=== PATIENT | female | born 1950 | race Caucasian/White ===

== ENCOUNTER 2016-07-10 00:06 | Inpatient (IN) | payer MEDICARE, MEDICAID ==
[~2016-07-10] VITALS: Ht 160 cm; Wt 119.7 kg
[~2016-07-10 00:06] MED LIST: ALPR0.5T22 PO; ALPR0.5T7 PO; BENA20TA2 PO; BENA20TA72 PO; BUDE10.22 IH; CEFD300C3 PO; CEFT2FRO2 IV; CEPH500C PO; CYCL10TA9 PO; DOCU100T2 PO; DOXY100T2 PO; EZET1TAB16 PO; EZET1TAB26 PO; FENO145T2 PO; FENT1PAT11 TD; FENT1PAT11 TP; FENT1PAT3 TD; FENT1PAT59 TD; FURO40TA PO; FURO40TA4 PO; GLIP5TAB13 PO; HYDR25TA4 PO; INSR1U SC; INSU100C SQ; INSU100I14 SC; INSU100V3 SQ; INSU100V6 SC; INSU100V6 SQ; IPRA3AMP11 INH; LACT1CAP45 PO; LORA10TA76 PO; MAG355OR16 PO; METO10TA61 PO; METO5TAB2 PO; METO5TAB79 PO; MG T1TAB PO; MONT10TA21 PO; MONT10TA24 PO; NF-OLOP5ML OU; NITR0.4T3 SL; OLOP5DRO7 OU; OMEG10005 PO; OMEP40CA36 PO; ONDA-43 PO; ONDA4TAB11 PO; ONDA4TAB8 PO; ONDA8TAB13 PO; ONDA8TAB6 PO; OXYC-471 PO; OXYC1TAB25 PO; OXYC5TAB71 PO; RT-ALBUINH IH; VANC1VIA IV; ZOLP10TA5 PO; ZOLP5TAB6 PO; [UNRECOGNIZED DRUG - CODE] TP
--- OUTSIDE RECORDS SUMMARY | 2016-07-10 00:12 | XMS REPORT | Continuity of Care Document ---
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 [address] Reason(s) for Referral: 13:00 Additional Instructions/Education REG DIET Functional Status Query Response Date Recorded Comprehension Ability Understands Concepts October 25, 2014 9:00am Allergies, Adverse Reactions, Alerts Allergen Type Severity Reaction Status Last Updated Iodinated Contrast Media - IV Dye Allergy Unknown SOB Active 07/30/14 Penicillins ([id number]) Allergy Unknown NAUSEA Active 07/30/14 Morphine Allergy Unknown NAUSEA Active 07/30/14 Codeine Allergy Unknown HIVES, VOMITING Active 07/30/14 Cephalexin Allergy Unknown ABDOMINAL PAIN Active 07/30/14 Erythromycin base Allergy Unknown NAUSEA Active 07/30/14 Clindamycin Allergy Severe VOMITING/RASH Active 10/22/14 sulfamethoxazole ([id number]) Allergy Unknown ITCHINESS Active 07/30/14 nitrofurantoin ([id number]) Allergy Unknown VOMITING Active 07/30/14 Trimethoprim Allergy Unknown ITCHINESS Active 07/30/14 ciprofloxacin ([id number]) Allergy Unknown VOMITING Active 07/30/14 adhesive ([id number]) Allergy Unknown HIVES Active 07/30/14 Clarithromycin Allergy [...] F (97.6 - 99.5) Temperature (Calculated Celsius) 37.50766 degrees C (36.4 - 37.5) Temperature Source Temporal Pulse Rate (adult) 91 bpm (60 - 90) Respiratory Rate 20 bpm (12 - 24) O2 Sat by Pulse Oximetry 96 % (88 - 100) Blood Pressure 116/70 mm Hg Pain Pain Intensity 0 Height (Feet) 5 feet Height (Inches) 3.00 inches Height (Calculated Centimeters) 160.323043 cm Weight (Pounds) 251 pounds Weight (Ounces) 4.0 oz Weight (Calculated Grams) 673429.084 gm Weight (Calculated Kilograms) 113.315657 kilograms Calculated BMI 44.46 Results Laboratory Results [...] 5-9 09/03/2014 12:23pm 09/03/2014 12:37pm Urine Specific [place] 1.010 * 1.016-1.022 09/03/2014 12:23pm 2014 12:37pm [...] 10/22/2014 8:57am 2014 7:45am TESTING PERFORMED BY: [facility] [id number] [place] [address] White Blood Count 5.6 10^3/uL 4.3-11.0 10/24/2014 [...] Encounters Encounter Location Date/Time Discharged Inpatient Via [facility] 10/22/14 12:29pm Discharged Recurring [facility] 09/17/14 12:30pm Discharged Recurring Via [facility] 07/26/14 9:57am
[2016-07-10] MEDS ORDERED: LACTATED RINGERS 1,000 ML IV ONE (01:24)
[2016-07-10] MEDS ORDERED: ONDANSETRON 4 MG/2 ML (SDV) Z0FRAN IVP ONE (01:30)
[2016-07-10 02:14] LABS: BASOPHILS % (AUTO) 0 % (0-10); EOSINOPHILS # (AUTO) 0.1 10^3/uL (0.0-0.3); EOSINOPHILS % (AUTO) 1 % (0-10); LYMPHOCYTES # (AUTO) 2.4 X 10^3 (1.0-4.0); LYMPHOCYTES % (AUTO) 21 % (12-44); MEAN CORPUSCULAR HEMOGLOBIN 27 PG (25-34); MEAN CORPUSCULAR HGB CONC 32 G/DL (32-36); MEAN CORPUSCULAR VOLUME 84 FL (80-99); MEAN PLATELET VOLUME 10.4 FL (7.4-10.4); MONOCYTES # (AUTO) 0.9 X 10^3 (0.0-1.0); MONOCYTES % (AUTO) 8 % (0-12); NEUTROPHILS # (AUTO) 8.3 X 10^3 (1.8-7.8); NEUTROPHILS % (AUTO) 71 % (42-75); PLATELET COUNT 285 10^3/uL (130-400); RED BLOOD COUNT 4.18 10^6/uL (4.35-5.85); RED CELL DISTRIBUTION WIDTH 18.1 % (10.0-14.5); WHITE BLOOD COUNT 11.7 10^3/uL (4.3-11.0)
[2016-07-10 02:24] LABS: KETONES,URINE 1+ (NEGATIVE); LEUKOCYTE ESTERASE ,URINE 2+ (NEGATIVE); NITRITE,URINE NEGATIVE (NEGATIVE); PH,URINE 5 (5-9); PROTEIN,URINE 1+ (NEGATIVE); UROBILINOGEN,URINE 1 MG/DL (NORMAL)
--- NOTE | 2016-07-10 02:27 | ED Abdominal Pain ---
General Stated Complaint: STOMACH PAIN, UNABLE TO URINATE Source of Information: Patient, Family (DAUGHTER) History of Present Illness Time Seen By Provider: 01:05 Initial Comments PT ARRIVES VIA POV FROM HOME C/O DIFFUSE ABDOMINAL PAIN AND BACK PAIN SINCE YESTERDAY PT STATES SHE HAS NOT VOIDED ALL DAY TODAY C/O CHILLS ALL DAY C/O NAUSEA AND VOMITING TODAY--VOMITED X 5-6 TODAY--STATES SHE CANNOT KEEP ANYTHING DOWN HAS HAD A COUPLE OF LOOSE STOOLS TODAY PT IS CURRENTLY BEING TREATED FOR METASTATIC COLON CANCER--NO CHEMO THIS WEEK ADMITTED 06/23-06/25 FOR ACUTE ON CHRONIC RENAL INSUFFICIENCY PCP: [facility]GUIA ONCOLOGY: DR. CHAPARRO Allergies and Home Medications Allergies Coded Allergies: clindamycin (Verified Allergy, Severe, VOMITING/RASH, 10/22/14) Iodinated Contrast Media - IV Dye (Unverified Allergy, Unknown, SOB, ) Penicillins (Unverified Allergy, Unknown, NAUSEA, 07/30/14) adhesive (Unverified Allergy, Unknown, HIVES, 07/30/14) cephalexin (Unverified Allergy, Unknown, ABDOMINAL PAIN, 07/30/14) ciprofloxacin (Unverified Allergy, Unknown, VOMITING, 07/30/14) clarithromycin (Unverified Allergy, Unknown, NAUSEA, 07/30/14) codeine (Unverified Allergy, Unknown, HIVES, VOMITING, HAS TAKEN PERCOCET W/O ISSUE, 06/23/16) erythromycin base (Unverified Allergy, Unknown, NAUSEA, 07/30/14) levofloxacin (Unverified Allergy, Unknown, HIVES, 07/30/14) morphine (Unverified Allergy, Unknown, NAUSEA, 07/30/14) nitrofurantoin (Unverified Allergy, Unknown, VOMITING, 07/30/14) sulfamethoxazole (Unverified Allergy, Unknown, ITCHINESS, 07/30/14) trimethoprim (Unverified Allergy, Unknown, ITCHINESS, 07/30/14) Home Medications Albuterol/Ipratropium 3 Ml Nebu 3 ML INH QID PRN PRN WHEEZING (Reported) Benazepril HCl 20 Mg Tablet 20 MG PO DAILY (Reported) Budesonide/Formoterol Fumarate 10.2 Gm Hfa.aer.ad 2 PUFF IH BID PRN PRN SHORTNESS OF BREATH (Reported) Docusate Sodium 100 Mg Tablet 200 MG PO DAILY (Reported) TAKES 2 (100MG) TABLETS Ezetimibe/Simvastatin 1 Each Tablet 1 TAB PO DAILY (Reported) LAST FILLED #30 03-24-16 Fentanyl 1 Each Patch.td72 100 MCG TD Q72H PRN PRN SEVERE PAIN (Reported) LAST FILLED #10 11-27-15 Glipizide 5 Mg Tablet 5 MG PO BID (Reported) Hydrochlorothiazide 25 Mg Tablet 25 MG PO DAILY (Reported) Insulin Glargine,Hum.rec.anlog 100 Unit/1 Ml Vial 45 UNITS SQ HS (Reported) Insulin Regular, Human 1,000 Units/10 Ml Soln 35 UNITS SQ AC (Reported) Mag Hydrox/Al Hydrox/Simeth 770 Ml Oral.susp 20 ML PO QID PRN PRN INDIGESTION ( Reported) Metoclopramide HCl 5 Mg Tablet 10 MG PO BID (Reported) LAST FILLED #120 03-01-16 TAKES 2 (5MG) TABLETS Montelukast Sodium 10 Mg Tablet 10 MG PO DAILY (Reported) Nitroglycerin 0.4 Mg Tab.subl 0.4 MG SL UD PRN PRN CHEST PAIN (Reported) PLACE 1 TABLET UNDER TONGUE EVERY 5 MINUTES X3 DOSES NEEDED FOR CHEST PAIN Olopatadine HCl 5 Ml Drops 1 DROP OU BID (Reported) LAST FILLED 12-11-15 Hurley-3 Fatty Acids 1,000 Mg Capsule 1,000 MG PO DAILY (Reported) Ondansetron 4 Mg Tab.rapdis 4 MG PO Q4H PRN PRN NAUSEA (Reported) Oxycodone HCl/Acetaminophen 1 Each Tablet #120 1 TAB PO Q4H PRN PRN SEVERE PAIN 1-2 TABS EVERY 4 HOURS FOR PAIN Prescribed by: STEFANO PADILLA on 06/25/16 1025 Review of Systems Constitutional: see HPI diaphoresis Respiratory: No Symptoms Reported Cardiovascular: No Symptoms Reported Gastrointestinal: See HPI Abdominal Pain Nausea Poor Appetite Poor Fluid Intake Vomiting Genitourinary: See HPI Flank Pain Other (UNABLE TO VOID ALL DAY) Musculoskeletal: see HPI back pain Skin: no symptoms reported Psychiatric/Neurological: No Symptoms Reported Endocrine: No Symptoms Reported Hematologic/Lymphatic: No Symptoms Reported Past Wjvntel-Kyjdyy-Hcdlfm Hx Patient Social History Former Smoker/When Quit: November 13, 1973 Recent Foreign Travel: No Contact w/Someone Who Travel: No Recent Hopitalizations: No Immunizations Up To Date Tetanus Booster (TDap): Less than 5yrs PED Vaccines UTD: Yes Date of Pneumonia Vaccine: May 11, 2016 Date of Influenza Vaccine: Mar 14, 2015 Seasonal Allergies Seasonal Allergies: Yes Surgeries HX Surgeries: Yes (LEFT BREAST BX, LOWER ABD ABSCESS, COLON RESECTION WITH COLOSTOMY, PORT RIGHT UPPER CHEST; CARDIAC CATHS--STENTS X 5) Surgeries: Abdominal, Appendectomy, Breast, Cardiac, Coronary Stent, Gallbladder, Hysterectomy, Vascular Surgery (PORT RIGHT UPPER CHEST) Respiratory Hx Respiratory Disorders: Yes (COPD,ASTHMA) Respiratory Disorders: Asthma, Sleep Apnea, COPD Cardiovascular Hx Cardiac Disorders: Yes (STENTS X5 PLACED 1988, mi at 19 years of age) Cardiac Disorders: Coronary Artery Disease, Heart Attack, High Cholesterol, Hypertension Neurological Hx Neurological Disorders: Yes Neurological Disorders: Headaches /Migraines Reproductive System Hx 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, Menopausal Genitourinary Hx Genitourinary Disorders: Yes (KIDNEY STONES FOUND INCIDENTALLY ON CT--NEVER PASSED ANY STONES; CHRONIC RENAL INSUFFICIENCY) Genitourinary Disorders: Kidney Stones, Renal Failure, UTI-Chronic Gastrointestinal Hx Gastrointestinal Disorders: Yes (COLON CA, COLOSTOMY) Gastrointestinal Disorders: Gall Bladder Disease Musculoskeletal Hx Musculoskeletal Disorders: Yes (LEGS ARE WEAK) Musculoskeletal Disorders: Arthritis, Chronic Back Pain Endocrine Hx Endocrine Disorders: Yes (MORBID OBITY) Endocrine Disorders: Diabetes, Insulin dep HEENT HX ENT Disorders: Yes (MISSING TEETH) HEENT Disorders: Cataract Loss of Vision: Denies Hearing Impairment: Denies Cancer Hx Cancer: Yes Cancer: Colon Psychosocial Hx Psychiatric Problems: No Integumentary HX Skin/Integumentary Disorder: No Blood Transfusions Hx Blood Disorders: No Adverse Reaction to a Blood Tr: No Family Medical History Significant Family History: COPD Family Medial History: Abdominal aortic aneurysm G8 BROTHER Arthritis G8 BROTHER Asthma G8 SISTER Cardiovascular disease 19 FATHER Cataracts 19 MOTHER Completed stroke 19 MOTHER Diabetes mellitus 19 FATHER Hypercholesterolemia G8 BROTHER Myocardial infarction 19 FATHER Respiratory disorder 19 FATHER 19 MOTHER No Family History of: AIDS Lester's disease Alcoholism Alzheimer's disease Aphasia Cancer of mouth Colon cancer Congenital disease Congenital heart disease Coronary thrombosis Cystic fibrosis Deafness or hearing loss Dementia Drug abuse Dysphasia Fibrocystic disease of breast Gastroenteritis Glaucoma Headache disorder Hypertension Infertility Kidney disease Neoplasm Osteoporosis Parkinson's disease Prostate cancer Psychosocial problem Seizure disorder Severe allergy Thyroid disease Tuberculosis Visual disorder Physical Exam Vital Signs VS - Last 72 Hours, by Label 07/10/16 00:52 Temp 97.8 Pulse 82 Resp 24 B/P 130/56 Pulse Ox 95 O2 Delivery Room Air Capillary Refill : General Appearance: no apparent distress obese HEENT: PERRL/EOMI other (VERY POOR DENTITION--MULTIPLE MISSING TEETH AND REMAINING TEETH WITH EXTENSIVE DECAY) Neck: normal inspection Respiratory: normal breath sounds no respiratory distress no accessory muscle use Cardiovascular: regular rate, rhythm no murmur Gastrointestinal: normal bowel sounds soft tenderness (DIFFUSE TENDERNESS. ) other (COLOSTOMY IN LLQ) Extremities: normal range of motion normal capillary refill pedal edema (1+ BILATERALLY WITH CHRONIC VENOUS STASIS CHANGES BILATERALLY -ERYTHEMA) Back: CVA tenderness (R) CVA tenderness (L) Neurologic/Psychiatric: shape carver II-XII nml as tested no motor/sensory deficits alert oriented x 3 Skin: normal color warm/dry Progress/Results/Core Measures Results/Orders Lab Results Laboratory Tests Test 07/10/16 00:55 07/10/16 02:05 Range/Units Urine Bacteria MODERATE H /HPF Urine Bilirubin 1+ H NEGATIVE Urine Casts PRESENT /LPF Urine Clarity CLEAR Urine Color YELLOW Urine Crystals NONE /LPF Urine Culture Indicated YES Urine Glucose (UA) NEGATIVE NEGATIVE Urine Hyaline Casts 2-5 H /LPF Urine Ketones 1+ H NEGATIVE Urine Leukocyte Esterase 2+ H NEGATIVE Urine Mucus MODERATE H /LPF Urine Nitrite NEGATIVE NEGATIVE Urine Protein 1+ H NEGATIVE Urine RBC 2-5 H /HPF Urine RBC (Auto) 2+ H NEGATIVE Urine Specific [place] 1.020 1.016-1.022 Urine Squamous Epithelial Cells 5-10 /HPF Urine Urobilinogen 1 NORMAL MG/DL Urine WBC 2-5 /HPF Urine pH 5 5-9 Alanine Aminotransferase (ALT/SGPT) 15 0-55 U/L Albumin 3.7 3.2-4.5 G/DL Alkaline Phosphatase 92 40-136 U/L Anion Gap 14 5-14 MMOL/L Aspartate Amino Transf (AST/SGOT) 22 5-34 U/L BUN/Creatinine Ratio 20 Basophils # (Auto) 0.0 0.0-0.1 10^3/uL Basophils (%) (Auto) 0 0-10 % Blood Urea Nitrogen 31 H 7-18 MG/DL Calcium Level 8.4 L 8.5-10.1 MG/DL Carbon Dioxide Level 24 21-32 MMOL/L Chloride Level 100 98-107 MMOL/L Creatinine 1.58 H 0.60-1.30 MG/DL Eosinophils # (Auto) 0.1 0.0-0.3 10^3/uL Eosinophils (%) (Auto) 1 0-10 % Estimat Glomerular Filtration Rate 33 Glucose Level 175 H 70-105 MG/DL Hematocrit 35 35-52 % Hemoglobin 11.2 L 11.5-16.0 G/DL Lymphocytes # (Auto) 2.4 1.0-4.0 X 10^3 Lymphocytes (%) (Auto) 21 12-44 % Mean Corpuscular Hemoglobin 27 25-34 PG Mean Corpuscular Hemoglobin Concent 32 32-36 G/DL Mean Corpuscular Volume 84 80-99 FL Mean Platelet Volume 10.4 7.4-10.4 FL Monocytes # (Auto) 0.9 0.0-1.0 X 10^3 Monocytes (%) (Auto) 8 0-12 % Neutrophils # (Auto) 8.3 H 1.8-7.8 X 10^3 Neutrophils (%) (Auto) 71 42-75 % Platelet Count 285 130-400 10^3/uL Potassium Level 4.1 3.6-5.0 MMOL/L Red Blood Count 4.18 L 4.35-5.85 10^6/uL Red Cell Distribution Width 18.1 H 10.0-14.5 % Sodium Level 138 135-145 MMOL/L Total Bilirubin 0.4 0.1-1.0 MG/DL Total Protein 6.8 6.4-8.2 G/DL White Blood Count 11.7 H 4.3-11.0 10^3/uL My Orders Orders-REJI CARRIZALES DO Catheter(Urinary) Insert & Ass 15 (07/10/16 01:09) Bladder Scan (07/10/16 01:09) Ua Culture If Indicated (07/10/16:09) Cbc With Automated Diff (07/10/16:24) Comprehensive Metabolic Panel (07/10/16:24) Blood Culture (07/10/16:24) Saline Lock/Iv-Start (07/10/16:24) Lactated Ringers (Lr 1000 Ml Iv Solution (07/10/16:24) Ondansetron Injection (Zofran Injectio (07/10/16 01:30) Ct Abdomen/Pelvis Wo (07/10/16 02:21) Acute Abd Series (07/10/16 02:21) Urine Culture (07/10/16 00:55) Fentanyl Injection (Sublimaze Injection (07/10/16 03:52) Medications Given in ED Current Medications Medications Dose Ordered Sig/Christina Route Start Time Stop Time Status Last Admin Dose Admin Lactated Ringer's 1,000 ml @ 0 mls/hr Q0M ONCE IV 07/10/16 01:24 07/10/16 01:26 DC 07/10/16 02:22 999 MLS/HR Ondansetron HCl 4 mg ONCE ONCE IVP 07/10/16 01:30 07/10/16 01:31 DC 07/10/16 02:23 4 MG Vital Signs/I&O Vital Sign - Last 12Hours 07/10/16 00:52 Temp 97.8 Pulse 82 Resp 24 B/P 130/56 Pulse Ox 95 O2 Delivery Room Air Diagnostic Imaging Comments CT ABDOMEN/PELVIS--EARLY SBO WITH TRANSITION POINT IN RLQ, OTHER NON-ACUTE FINDINGS--PER [facility] VIA FAX @ 3058 ACUTE ABDOMEN XRAYS--NON-SPECIFIC BOWEL GAS, PENDING RADIOLOGIST REVIEW Reviewed: Reviewed by Me Departure Communication Progress Notes [id number]--YUCX[facility] WITH DR. SINGH, ACCEPTS PT FOR ADMIT. Impression Impression: Primary Impression: Small bowel obstruction Additional Impressions: HX OF METASTATIC COLON CANCER Chronic renal insufficiency Disposition: ADMITTED INPATIENT Condition: Stable Decision to Admit Reason: Admit from ER (General) Decision to Admit/Date: Jul 10, 2016 Time/Decision to Admit Time: 03:55 Departure-Patient Inst. Referrals: NO,LOCAL PHYSICIAN (PCP/Family) Primary Care Physician REJI CARRIZALES DO Jul 10, 2016 02:27
[2016-07-10 02:34] LABS: ALBUMIN 3.7 G/DL (3.2-4.5); BILIRUBIN,TOTAL 0.4 MG/DL (0.1-1.0); CALCIUM 8.4 MG/DL (8.5-10.1); CREATININE SERUM 1.58 MG/DL (0.60-1.30); POTASSIUM 4.1 MMOL/L (3.6-5.0); TOTAL PROTEIN 6.8 G/DL (6.4-8.2)
[2016-07-10] MEDS ORDERED: fentaNYL INJECTION 100 MCG/2 ML AMP IVP STA (03:52)
[2016-07-10] MEDS ORDERED: cefTRIAXone 1 GM (ROCEPHIN) VIAL ONE (03:54)
[2016-07-10] MEDS ORDERED: NORMAL SALINE (BAXTER MINI) 50 ML IV ONE (03:54)
[2016-07-10] MEDS ORDERED: cefTRIAXone INJECTION 1,000 MG in NORMAL SALINE (BAXTER MINI) 50 ML IV ONE (04:00)
[2016-07-10 04:55] VITALS: BP 150/75
[2016-07-10] MEDS ORDERED: ONDANSETRON 4 MG/2 ML (SDV) Z0FRAN ONE (05:08)
[2016-07-10] MEDS: D5 1/2 NS 1000 ML IV SOLUTION 1,000 ML IV SCH ×3 (07:35→16:33)
[2016-07-10] MEDS: fentaNYL INJECTION 100 MCG/2 ML AMP IV PRN ×5 (07:42→22:24)
[2016-07-10] MEDS: ONDANSETRON 4 MG/2 ML (SDV) Z0FRAN IV PRN ×3 (07:44→22:25)
--- NOTE | 2016-07-10 08:15 | Diagnostic Imaging Report ---
EXAMINATION: Abdominal radiographs, acute series. DATE: July 10, 2016. CLINICAL INDICATION: A 66-year-old female, abdominal pain. COMPARISON: [facility], June 22, 2016. COMMENTS: There is a right-sided port catheter with tip overlying the lower SVC. Stable overall appearance of the cardiomediastinal silhouette. There is no identified pneumothorax. There is no large pleural effusion. There is no identified focal airspace consolidation. There is no identified free intraperitoneal air. There are abnormally distended gas-filled segments of small bowel in the left lower quadrant measuring up to 5.8 cm in diameter. These are disproportionately distended relative to colonic caliber. There are pelvic calcifications likely relating to phleboliths. There is no identified pneumatosis or portal venous gas. IMPRESSION: 1. Abnormally distended gas-filled segments of small bowel in the left lower quadrant concerning for distal small bowel obstruction. Dictated by: Dictated on workstation # [id number]
--- NOTE | 2016-07-10 08:18 | Diagnostic Imaging Report ---
PROCEDURE: CT abdomen and pelvis without contrast. TECHNIQUE: Multiple contiguous axial images were obtained through the abdomen and pelvis without the use of intravenous contrast. DATE: July 10, 2016. COMPARISON: KUB June 22, 2016. CT abdomen and pelvis November 29, 2015. INDICATION: 66-year-old female, abdominal pain. Unable to urinate. FINDINGS: There is minimal linear opacities in the left lower lobe compatible with atelectasis and/or scarring. The liver is normal in size and contour. There is a small benign-appearing calcification in the dome of the liver. The gallbladder is not well-seen and may be surgically absent. There is prominence of the common bile duct which measures up to approximately 8mm in size. This is grossly unchanged since comparison exam. There is no CT apparent common bile duct stone or ampullary mass on noncontrast assessment. There is no dilation of the main pancreatic duct. The pancreatic parenchyma is unremarkable. The spleen is normal in size. The adrenal glands are unremarkable. There is a low-attenuation right renal lesion compatible with a benign cyst which measures up to approximately 5.7 x 5.0 cm in size. Internal attenuation measures 2 Hounsfield units. There is an exophytic right renal lesion on image 51 which is not able to be definitively classified based on internal attenuation measurements. This measures 10 mm in size. There is mild atrophy of the right kidney. The urinary collecting systems are not distended. There is no identified renal or ureteral stone. There is a Sorto catheter within a collapsed urinary bladder. The uterus is very heterogeneous in attenuation with multiple intrauterine masses which may potentially relate to multiple intrauterine leiomyomas. There is a left lower quadrant colostomy. There is bowel herniating through the colostomy site without obstruction specifically at this site. There is abnormal fluid distention of distal small bowel loops which measure up to approximately 4.2 cm in diameter. These are disproportionately distended compared to colonic caliber. There are some very distal segments of small bowel which are nondistended. The exact transition point is not well identified although most likely is occurring within the left lower quadrant. There is no identified free intraperitoneal air. There is no drainable fluid collection. There is no free pelvic fluid. There are surgical clips along the anterior abdominal wall. There are atherosclerotic calcifications. There is no identified abnormally enlarged lymph node within the abdomen or pelvis which meets CT size criteria for adenopathy. There is no identified acute bony abnormality. There are multilevel degenerative changes of the spine. IMPRESSION: CT ABDOMEN AND PELVIS. 1. Abnormally distended segments of distal small bowel in the left lower quadrant concerning for distal small bowel obstruction. 2. Heterogeneous appearance of the uterus with multiple intrauterine masses likely relating to uterine leiomyomas. Dictated by: Dictated on workstation # [id number]
[2016-07-10 08:30] VITALS: BP 125/82
[2016-07-10] MEDS ORDERED: DIAZEPAM INJ 10 MG/2 ML (VALIUM) SYR IV NR (09:00)
[2016-07-10] MEDS: ENOXAPARIN 40 MG/0.4 ML (LOVENOX) SYR SC SCH (11:05)
--- NOTE | 2016-07-10 11:20 | HISTORY AND PHYSICAL ---
DATE OF ADMISSION: 07/10/2016 DIAGNOSES: 1. Metastatic colorectal cancer. 2. Small bowel obstruction. 3. Para-colostomy hernia. 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 She received adjuvant chemotherapy and has since been found to have systemic metastasis. Over the last 48 hours, she has developed increasing abdominal pain, distention, and nausea with vomiting. Evaluation in the emergency room including a CT scan has confirmed features of small bowel obstruction. PAST MEDICAL HISTORY: 1. COPD. 2. Hypertension. 3. Insulin requiring diabetes. REVIEW OF SYSTEMS: NEURO: Denies any headache. CARDIAC: No palpitations. RESPIRATORY: No cough or shortness of breath at this point. GI: Symptoms as mentioned under the history of the present illness. PHYSICAL EXAMINATION: She is rather drowsy. A nasogastric tube has just been placed, returning small bowel contents. ABDOMEN: Her abdomen is soft but distended. A lower midline scar resulting from previous laparotomy is evident. A large para-colostomy hernia is also seen over the left side. LABORATORY DATA: Her white cell count is normal. BUN and creatinine are elevated due to renal insufficiency. This appears to be an ongoing observation. RADIOLOGIC DATA: A nonenhanced CT scan confirms the para-stomal hernia with evidence of partial small bowel obstruction. There does not appear to be any transition point. The level of obstruction does not appear to be within the parastomal hernia. ASSESSMENT: 1. Lady with metastatic colon cancer. 2. Partial small bowel obstruction. 3. Parasternal hernia. RECOMMENDATIONS/PLAN: At this point, it is reasonable to continue conservative therapy. This would involve nasogastric decompression, intravenous fluids and monitoring of her renal function. Thromboprophylaxis would be instituted using low molecule weight heparin. Her oncologist, Dr. Pleitez would be consulted to coordinate her care as well. Job ID: [id number] Dictated Date: 07/10/2016 10:36:40 Screener Operator Date: 07/10/2016 11:10:40/harpreet COLBERT
[2016-07-10] MEDS: inSUlin (REGULAR) HUMAN 1 UNIT/0.01 ML (CHARGE PER UNIT) SC SCH ×3 (12:00→18:00)
[2016-07-10 16:53] VITALS: BP 119/56
[2016-07-10 20:56] VITALS: BP 142/63
[2016-07-11] VITALS: BP 145/72
[2016-07-11] MEDS: inSUlin (REGULAR) HUMAN 1 UNIT/0.01 ML (CHARGE PER UNIT) SC SCH ×4 (00:46→18:18)
[2016-07-11] MEDS: D5 1/2 NS 1000 ML IV SOLUTION 1,000 ML IV SCH ×3 (00:46→18:23)
[2016-07-11] MEDS: ONDANSETRON 4 MG/2 ML (SDV) Z0FRAN IV PRN ×2 (03:20→07:31)
[2016-07-11] MEDS: fentaNYL INJECTION 100 MCG/2 ML AMP IV PRN ×5 (03:20→22:16)
[2016-07-11 04:00] VITALS: BP 144/65
[2016-07-11] MEDS ORDERED: NORMAL SALINE (BAXTER MINI) 50 ML IV ONE (06:08)
[2016-07-11] MEDS ORDERED: cefTRIAXone 1 GM (ROCEPHIN) VIAL ONE (06:08)
[2016-07-11] MEDS: PANTOPRAZOLE 40 MG/10 ML (PROTONIX) VIAL IV SCH (06:19)
[2016-07-11] MEDS: cefTRIAXone 1 GM/NS 50 ML IVPB IV SCH ×2 (06:19)
[2016-07-11 08:00] VITALS: BP 134/59
[2016-07-11] MEDS: ENOXAPARIN 40 MG/0.4 ML (LOVENOX) SYR SC SCH (10:04)
[2016-07-11] MEDS ORDERED: RT-ALBUTEROL/IPRATROPIUM 3 ML (DUONEB) VIAL INH PRN (11:00)
[2016-07-11] MEDS ORDERED: NON-FORMULARY MEDICATION 1 EA EA (Budesonide/Formoterol Fumarate (Symbicort 80-4.5 Mcg Inh IH PRN (11:00)
[2016-07-11 11:02] LABS: BILIRUBIN,URINE 1+ (NEGATIVE)
--- NOTE | 2016-07-11 11:42 | Progress Note (SOAP) ---
Subjective Subjective/Events-last exam abdominal pain and distention much improved. Flatus filling up the colostomy bag. Decreased output from the nasogastric tube. Review of Systems General: No Chills, No Night Sweats, No Fatigue, No Malaise HEENT: No Head Aches, No Eye Pain, No Ear Pain, No Dysphasia, No Sinus Congestion, No Post Nasal Drip, No Sore Throat Pulmonary: Cough Cardiovascular: No: Chest Pain, Edema, Lt Headedness, Orthopnea, Palpitations, Paroxysmal Noc. Dyspnea Gastrointestinal: : Abdominal Pain Genitourinary: No Dysuria, No Frequency, No Incontinence, No Hematuria, No Retention Musculoskeletal: : back pain Neurological: No: Change in speech, Confusion, Incoordination, Numbness, Other , Seizures, Weakness Objective Exam Vital Signs Date Time Temp Pulse Resp B/P Pulse Ox O2 Delivery O2 Flow Rate FiO2 07/11/16 08:00 97.8 63 16 134/59 95 Room Air 07/11/16 04:00 97.9 71 18 144/65 93 Room Air 07/11/16 00:00 97.0 74 18 145/72 92 Room Air 07/10/16 21:00 Room Air 07/10/16 21:00 Room Air 07/10/16 20:56 98.6 72 18 142/63 95 Room Air 07/10/16 16:53 98.1 64 18 119/56 94 Room Air I & O 07/11/16 07:00 Intake Total 2000 ml Output Total 1950 ml Balance 50 ml Capillary Refill : Less Than 3 Seconds General Appearance: No Apparent Distress HEENT: PERRL/EOMI Neck: Normal Inspection Respiratory: Lungs Clear Cardiovascular: Regular Rate, Rhythm Gastrointestinal: non tender soft other Extremity: Normal Capillary Refill Neurologic/Psychiatric: Alert Oriented x3 Skin: Warm/Dry Other comments flatus and liquid stools and the stoma bag. Abdominal distention resolved. Results Lab Laboratory Tests 07/10/16 11:51: Glucometer 270H 07/10/16 18:17: Glucometer 190H 07/11/16 00:39: Glucometer 204H 07/11/16 06:08: Glucometer 202H Microbiology 07/10/16 Urine Culture - Preliminary, Resulted Assessment/Plan Assessment/Plan Assess & Plan/Chief Complaint partial small bowel obstruction. Metastatic colon cancer. Obstruction resolving. Continue nonoperative therapy. Diagnosis/Problems: Final Diagnosis metastatic colon cancer. partial small bowel obstruction.paracolostomy hernia Clinical Quality Measures Type of Care: Type of Care: Comfort Measures DVT/VTE Risk/Contraindication: VTE Present on Admission: No Risk Factor Score Per Nursin RFS Level Per Nursing on Admit: 4+=Very High ANOOP SINGH MD Jul 11, 2016 11:42 am
[2016-07-11 12:00] VITALS: BP 129/58
[2016-07-11] MEDS: METOCLOPRAMIDE INJ 10 MG/2 ML (REGLAN) IVP SCH ×2 (12:14→18:18)
--- NOTE | 2016-07-11 12:53 | Oncology Consultation ---
Visit Information Visit Information Date of Admission Jul 10, 2016 at 03:55 Attending Physician Kojo Arteaga MD Admitting Physician No,Local Physician Interval History Ms. Ortiz is a 66 year old white female known to me at Cancer center for management of her stage IV recurrent colon cancer. She is currently on chemo break. Her 07/01/16 and her has been under a lot of stress. She presented to ER with 2 days of progressing abdominal pain, nausea and vomiting. CT of abd at ER showed small bowel obstruction. Dr Arteaga admitted patient and starter her NG tube, bowel rest, IVF and pain control. She is doing much better today. PMH: Recurrent and metastatic moderately differentiated adenocarcinoma, with large inflammatory colorectal mass on FOLFOX every 2 weeks s/p #13 (last course ). Then changed to 5-FU and Avastine due to peripheral neuropathy. Her was hold off during the holiday, last dose was more than a month ago. 2. Recent ARF, resolved. 3. multiple UTIs 4. CAD, s/pstent palcement year 1999. Stable at this point. 5. Iron difficiency anemia from bleeding. Hb is stable today. Not able to tolerate oral iron. Will close watch for now. 6. DM, needs better control. Pt will work on her diet and follow up with her PCP 9. 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 Anaphlastic reaction to IV contrast. 12. HTN I consulted the patient on: 07/11/16 12:53 Constitutional: weakness EENTM: no symptoms reported Respiratory: no symptoms reported Cardiovascular: no symptoms reported Gastrointestinal: abdominal pain diarrhea loss of appetite nausea vomiting Musculoskeletal: back pain muscle stiffness Psychiatric/Neurological: Emotional Problems Health Status Allergies Coded Allergies: clindamycin (Verified Allergy, Severe, VOMITING/RASH, 10/22/14) Iodinated Contrast Media - IV Dye (Unverified Allergy, Unknown, SOB, ) Penicillins (Unverified Allergy, Unknown, NAUSEA, 07/30/14) adhesive (Unverified Allergy, Unknown, HIVES, 07/30/14) cephalexin (Unverified Allergy, Unknown, ABDOMINAL PAIN, 07/30/14) ciprofloxacin (Unverified Allergy, Unknown, VOMITING, 07/30/14) clarithromycin (Unverified Allergy, Unknown, NAUSEA, 07/30/14) codeine (Unverified Allergy, Unknown, HIVES, VOMITING, HAS TAKEN PERCOCET W/O ISSUE, 06/23/16) erythromycin base (Unverified Allergy, Unknown, NAUSEA, 07/30/14) levofloxacin (Unverified Allergy, Unknown, HIVES, 07/30/14) morphine (Unverified Allergy, Unknown, NAUSEA, 07/30/14) nitrofurantoin (Unverified Allergy, Unknown, VOMITING, 07/30/14) sulfamethoxazole (Unverified Allergy, Unknown, ITCHINESS, 07/30/14) trimethoprim (Unverified Allergy, Unknown, ITCHINESS, 07/30/14) Home Medications Albuterol/Ipratropium (Duoneb Rt) 3 Ml Nebu 3 ML INH QID PRN PRN WHEEZING ( Reported) Benazepril HCl (Benazepril HCl) 20 Mg Tablet 20 MG PO DAILY (Reported) Budesonide/Formoterol Fumarate (Symbicort 80-4.5 Mcg Inhaler) 10.2 Gm Hfa.aer.ad 2 PUFF IH BID PRN PRN SHORTNESS OF BREATH (Reported) Docusate Sodium (Docusate Sodium) 100 Mg Tablet 200 MG PO DAILY (Reported) TAKES 2 (100MG) TABLETS Ezetimibe/Simvastatin (Vytorin 10-80 mg Tablet) 1 Each Tablet 1 TAB PO DAILY ( Reported) LAST FILLED #30 03-24-16 Fentanyl (Fentanyl Patch 100 MCG) 1 Each Patch.td72 100 MCG TD Q72H PRN PRN SEVERE PAIN (Reported) LAST FILLED #10 16 Glipizide (Glipizide) 5 Mg Tablet 5 MG PO BID (Reported) Hydrochlorothiazide (Hydrochlorothiazide) 25 Mg Tablet 25 MG PO DAILY (Reported ) Insulin Glargine,Hum.rec.anlog (Lantus) 100 Unit/1 Ml Vial 45 UNITS SQ HS ( Reported) Insulin Regular, Human (Humulin R) 1,000 Units/10 Ml Soln 35 UNITS SQ AC ( Reported) Mag Hydrox/Al Hydrox/Simeth (Maalox Advanced Suspension) 770 Ml Oral.susp 20 ML PO QID PRN PRN INDIGESTION (Reported) Metoclopramide HCl (Metoclopramide HCl) 5 Mg Tablet 10 MG PO BID (Reported) LAST FILLED #120 8-22-16 TAKES 2 (5MG) TABLETS Montelukast Sodium (Montelukast Sodium) 10 Mg Tablet 10 MG PO DAILY (Reported) Nitroglycerin (Nitroglycerin) 0.4 Mg Tab.subl 0.4 MG SL UD PRN PRN CHEST PAIN ( Reported) PLACE 1 TABLET UNDER TONGUE EVERY 5 MINUTES X3 DOSES NEEDED FOR CHEST PAIN Olopatadine HCl (Olopatadine HCl) 5 Ml Drops 1 DROP OU BID (Reported) LAST FILLED 12-11-15 [place]-3 Fatty Acids ([place]-3) 1,000 Mg Capsule 1,000 MG PO DAILY (Reported) Ondansetron (Ondansetron Odt) 4 Mg Tab.rapdis 4 MG PO Q4H PRN PRN NAUSEA ( Reported) Oxycodone HCl/Acetaminophen (Oxycodone-Acetaminophen 5-325) 1 Each Tablet #120 1 TAB PO Q4H PRN PRN SEVERE PAIN 1-2 TABS EVERY 4 HOURS FOR PAIN Prescribed by: STEFANO PADILLA on 06/25/16 1025 IME-Dfggzz-Eyieol Hx Patient Social History Alcohol Use: Denies Use Recreational Drug Use: No Smoking Status: Former Smoker Former smoker/When Quit: November 13, 1973 Type Used: Cigarettes Recent Foreign Travel: No Contact w/other who traveled: No Recent Infectious Disease Expo: No Recent Hopitalizations: Yes Physical Abuse Screen: No Sexual Abuse: No Immunizations Up To Date Tetanus Booster (TDap): Less than 5yrs Date of Pneumonia Vaccine: May 11, 2016 Date of Influenza Vaccine: May 11, 2016 Family Medical History Significant Family History: COPD Family History: Abdominal aortic aneurysm G8 BROTHER Arthritis G8 BROTHER Asthma G8 SISTER Cardiovascular disease 19 FATHER Cataracts 19 MOTHER Completed stroke 19 MOTHER Diabetes mellitus 19 FATHER Hypercholesterolemia G8 BROTHER Myocardial infarction 19 FATHER Respiratory disorder 19 FATHER 19 MOTHER No Family History of: AIDS Day's disease Alcoholism Alzheimer's disease Aphasia Cancer of mouth Colon cancer Congenital disease Congenital heart disease Coronary thrombosis Cystic fibrosis Deafness or hearing loss Dementia Drug abuse Dysphasia Fibrocystic disease of breast Gastroenteritis Glaucoma Headache disorder Hypertension Infertility Kidney disease Neoplasm Osteoporosis Parkinson's disease Prostate cancer Psychosocial problem Seizure disorder Severe allergy Thyroid disease Tuberculosis Visual disorder Physical Exam Vital Signs Vital Sign - Last 12Hours 07/10/16 00:52 Temp 97.8 Pulse 82 Resp 24 B/P 130/56 Pulse Ox 95 O2 Delivery Room Air Capillary Refill : Less Than 3 Seconds General Appearance: No Apparent Distress HEENT: PERRL/EOMI Other (on NG tube) Neck: Non Tender Supple Respiratory: Lungs Clear No Accessory Muscle Use No Respiratory Distress Cardiovascular: Regular Rate, Rhythm No JVD Gastrointestinal: Soft Distended Tenderness Extremity: Non Tender No Calf Tenderness Neurologic/Psychiatric: Alert Oriented x3 Data Review Labs Laboratory Tests 07/10/16 00:55: Urine Bacteria MODERATEH, Urine Bilirubin 1+H, Urine Hyaline Casts 2-5H, Urine Ketones 1+H, Urine Leukocyte Esterase 2+H, Urine Mucus MODERATEH, Urine Protein 1+H, Urine RBC 2-5H, Urine RBC (Auto) 2+H 07/10/16 02:05: Blood Urea Nitrogen 31H, Calcium Level 8.4L, Creatinine 1.58H, Glucose Level 175H, Hemoglobin 11.2L, Neutrophils # (Auto) 8.3H, Red Blood Count 4.18L, Red Cell Distribution Width 18.1H, White Blood Count 11.7H 07/10/16 07:02: Glucometer 191H 07/10/16 11:51: Glucometer 270H 07/10/16 18:17: Glucometer 190H 07/11/16 00:39: Glucometer 204H 07/11/16 06:08: Glucometer 202H Impression & Plan Impression & Plan 1. Recurrent and stage IV metastatic moderately differentiated adenocarcinoma, with large inflammatory colorectal mass on FOLFOX every 2 weeks s/p #13 (last course 03-22-15). Then changed to 5-FU and Avastine due to peripheral neuropathy. She is on a chemo break during iday season. 2. Small bowel obstruction with nausea vomitting and diarrhea, and dehydration with elevated Cr from 1.2 to 1.5. She is on IVF along with Zofran and Fentanyl for nausea and pain. Bowel rest today. NG tube decompression. 3. Acute renal failure due to #2 on IVF. Check BMP tomorrow 4. CAD, s/pstent palcement year 1999. Stable at this point. 5. Iron difficiency anemia from bleeding. Hb is stable today. 6. DM, on sliding scale while NPO. 9. 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 Anaphlastic reaction to IV contrast. 12. HTN. SEBASTIEN CHAPARRO MD Jul 11, 2016 12:53
[2016-07-11 16:30] VITALS: BP 147/78
[2016-07-11] MEDS: DICLOFENAC 1% GEL 100 GM (VOLTAREN) TUBE TOP SCH ×2 (17:15→22:15)
[2016-07-11] MEDS: RT-ADVAIR HFA 45/21 MCG PER PUFF IH PRN (19:30)
[2016-07-11 19:47] VITALS: BP 143/77
[2016-07-12 00:19] VITALS: BP 138/72
[2016-07-12] MEDS: METOCLOPRAMIDE INJ 10 MG/2 ML (REGLAN) IVP SCH ×4 (00:20→17:33)
[2016-07-12] MEDS: inSUlin (REGULAR) HUMAN 1 UNIT/0.01 ML (CHARGE PER UNIT) SC SCH ×4 (00:23→18:16)
[2016-07-12] MEDS: fentaNYL INJECTION 100 MCG/2 ML AMP IV PRN ×7 (00:29→20:03)
[2016-07-12] MEDS: D5 1/2 NS 1000 ML IV SOLUTION 1,000 ML IV SCH ×4 (03:02→20:44)
[2016-07-12 03:45] VITALS: BP 145/69
[2016-07-12] MEDS ORDERED: cefTRIAXone 1 GM (ROCEPHIN) VIAL ONE (05:12)
[2016-07-12] MEDS ORDERED: NORMAL SALINE (BAXTER MINI) 50 ML IV ONE (05:12)
[2016-07-12] MEDS: PANTOPRAZOLE 40 MG/10 ML (PROTONIX) VIAL IV SCH (05:22)
[2016-07-12] MEDS: cefTRIAXone 1 GM/NS 50 ML IVPB IV SCH ×2 (05:22)
[2016-07-12 05:58] LABS: CALCIUM 7.8 MG/DL (8.5-10.1); CREATININE SERUM 0.96 MG/DL (0.60-1.30); POTASSIUM 4.1 MMOL/L (3.6-5.0)
[2016-07-12 08:26] VITALS: BP 147/68
[2016-07-12] MEDS ORDERED: VYTORIN PO SCH (09:00)
[2016-07-12] MEDS: DICLOFENAC 1% GEL 100 GM (VOLTAREN) TUBE TOP SCH ×4 (09:01→20:02)
[2016-07-12] MEDS: RT-ADVAIR HFA 45/21 MCG PER PUFF IH PRN ×2 (09:48→20:38)
--- NOTE | 2016-07-12 09:58 | Progress Note (SOAP) ---
Subjective Subjective/Events-last exam Follow-up on partial small bowel obstruction. NG output clear and decreasing. Colostomy functioning. No abdominal distention. Will start TPN today Review of Systems General: No Chills, No Night Sweats, No Fatigue, No Malaise HEENT: No Head Aches, No Eye Pain, No Ear Pain, No Dysphasia, No Sinus Congestion, No Post Nasal Drip, No Sore Throat Pulmonary: No Dyspnea, No Cough, No Pleuritic Chest Pain Cardiovascular: No: Chest Pain, Edema, Lt Headedness, Orthopnea, Palpitations, Paroxysmal Noc. Dyspnea Gastrointestinal: No: Abdominal Pain, Constipation, Diarrhea, Hematochezia, Melena, Nausea, Vomiting Genitourinary: No Dysuria, No Frequency, No Incontinence, No Hematuria, No Retention Musculoskeletal: No: arm pain, back pain, foot pain, hand pain, leg pain, neck pain, other, shoulder pain Objective Exam Vital Signs Date Time Temp Pulse Resp B/P Pulse Ox O2 Delivery O2 Flow Rate FiO2 07/12/16 09:48 91 Room Air 07/12/16 08:26 98.0 66 18 147/68 94 Room Air 07/12/16 03:45 97.6 67 18 145/69 93 Room Air 07/12/16 00:19 99.4 76 18 138/72 93 Room Air 07/11/16 20:15 93 Room Air 07/11/16 19:47 99.1 75 16 143/77 95 Room Air 07/11/16 19:31 94 Room Air 07/11/16 16:30 98.9 72 16 147/78 94 Room Air 07/11/16 12:00 98.1 70 16 129/58 93 Room Air I & O 07/12/16 07:00 Intake Total 100 ml Output Total 4650 ml Balance -4550 ml Capillary Refill : Less Than 3 Seconds General Appearance: No Apparent Distress HEENT: PERRL/EOMI Neck: Normal Inspection Respiratory: Lungs Clear Cardiovascular: Regular Rate, Rhythm Gastrointestinal: non tender soft Extremity: Normal Capillary Refill Skin: Normal Color Warm/Dry Other comments Liquid stools and colostomy along with flatus. No abdominal distention. No evidence of peritonitis Results Lab Laboratory Tests 07/11/16 12:06: Glucometer 217H 07/11/16 18:10: Glucometer 236H 07/12/16 00:16: Glucometer 228H 07/12/16 05:25: Anion Gap 8, BUN/Creatinine Ratio 14, Blood Urea Nitrogen 13, Calcium Level 7.8L , Carbon Dioxide Level 24, Chloride Level 103, Creatinine 0.96, Estimat Glomerular Filtration Rate 58, Glucose Level 199H, Potassium Level 4.1, Sodium Level 135 07/12/16 06:06: Glucometer 172H Microbiology 07/10/16 Blood Culture - Preliminary, Resulted No growth 07/10/16 Urine Culture - Final, Complete Assessment/Plan Assessment/Plan Assess & Plan/Chief Complaint partial small bowel obstruction. Metastatic colon cancer. Obstruction resolving. Continue nonoperative therapy. Diagnosis/Problems: Final Diagnosis Metastatic colon cancer. Partial small bowel obstruction, improving Clinical Quality Measures Type of Care: Type of Care: Comfort Measures DVT/VTE Risk/Contraindication: VTE Present on Admission: No Risk Factor Score Per Nursin RFS Level Per Nursing on Admit: 4+=Very High ANOOP SINGH MD Jul 12, 2016 09:57
[2016-07-12] MEDS: ONDANSETRON 4 MG/2 ML (SDV) Z0FRAN IV PRN (10:41)
[2016-07-12] MEDS: ENOXAPARIN 40 MG/0.4 ML (LOVENOX) SYR SC SCH (10:41)
[2016-07-12] MEDS: BENAZEPRIL 20 MG (LOTENSIN) TAB PO SCH (12:09)
[2016-07-12 12:33] LABS: MEAN PLATELET VOLUME 10.1 FL (7.4-10.4); RED BLOOD COUNT 3.88 10^6/uL (4.35-5.85); RED CELL DISTRIBUTION WIDTH 17.3 % (10.0-14.5); WHITE BLOOD COUNT 7.1 10^3/uL (4.3-11.0)
[2016-07-12 12:42] LABS: PROTHROMBIN TIME PATIENT 12.5 SEC (12.2-14.7)
[2016-07-12 12:55] LABS: ALBUMIN 3.2 G/DL (3.2-4.5); BILIRUBIN,TOTAL 0.3 MG/DL (0.1-1.0); CREATININE SERUM 0.97 MG/DL (0.60-1.30); MAGNESIUM 2.1 MG/DL (1.8-2.4); PHOSPHORUS 2.7 MG/DL (2.3-4.7); POTASSIUM 4.3 MMOL/L (3.6-5.0); TOTAL PROTEIN 6.1 G/DL (6.4-8.2)
--- NOTE | 2016-07-12 15:04 | Oncology Progress Note ---
Subjective Subjective/Events-last exam Had rough night. NT tube leaking last night. Very tired today. Pain under good control Data Review Labs Laboratory Tests 07/12/16 05:25 07/12/16 12:10 Laboratory Tests 07/10/16 00:55: Urine Bacteria MODERATEH, Urine Bilirubin 1+H, Urine Hyaline Casts 2-5H, Urine Ketones 1+H, Urine Leukocyte Esterase 2+H, Urine Mucus MODERATEH, Urine Protein 1+H, Urine RBC 2-5H, Urine RBC (Auto) 2+H 07/10/16 02:05: Blood Urea Nitrogen 31H, Calcium Level 8.4L, Creatinine 1.58H, Glucose Level 175H, Hemoglobin 11.2L, Neutrophils # (Auto) 8.3H, Red Blood Count 4.18L, Red Cell Distribution Width 18.1H, White Blood Count 11.7H 07/10/16 07:02: Glucometer 191H 07/10/16 11:51: Glucometer 270H 07/10/16 18:17: Glucometer 190H 07/11/16 00:39: Glucometer 204H 07/11/16 06:08: Glucometer 202H 07/11/16 12:06: Glucometer 217H 07/11/16 18:10: Glucometer 236H 07/12/16 00:16: Glucometer 228H 07/12/16 05:25: Calcium Level 7.8L, Glucose Level 199H 07/12/16 06:06: Glucometer 172H 07/12/16 12:07: Glucometer 247H 07/12/16 12:10: Calcium Level 8.0L, Glucose Level 255H, Hematocrit 33L, Hemoglobin 10.3L, Prealbumin 13.5L, Red Blood Count 3.88L, Red Cell Distribution Width 17.3H, Total Protein 6.1L, Triglycerides Level 238H Physical Exam Vital Signs Vital Sign - Last 12Hours 07/10/16 00:52 Temp 97.8 Pulse 82 Resp 24 B/P 130/56 Pulse Ox 95 O2 Delivery Room Air Capillary Refill : Less Than 3 Seconds General Appearance: No Apparent Distress HEENT: PERRL/EOMI Neck: Non Tender Supple Respiratory: Chest Non Tender Lungs Clear No Accessory Muscle Use No Respiratory Distress Cardiovascular: Regular Rate, Rhythm No JVD Gastrointestinal: Soft Distended Tenderness Extremity: Non Tender No Pedal Edema Neurologic/Psychiatric: Alert Oriented x3 Impression & Plan Impression & Plan 1. Recurrent and stage IV metastatic moderately differentiated adenocarcinoma, with large inflammatory colorectal mass on FOLFOX every 2 weeks s/p #13 (last course 03-22-15). Then changed to 5-FU and Avastine due to peripheral neuropathy. She is on a chemo break during holiday season. 2. Small bowel obstruction, better. She is on IVF along with Zofran and Fentanyl for nausea and pain. Bowel rest today. NG tube decompression. 3. Acute renal failure due to #2 on IVF. Cr back to normal now. 4. CAD, s/pstent palcement year 1999. Stable at this point. 5. Iron difficiency anemia from bleeding. Hb is stable today. 6. DM, on sliding scale while NPO. 9. 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 Anaphlastic reaction to IV contrast. 12. HTN. Clinical Quality Measures Type of Care: Type of Care: Comfort Measures DVT/VTE Risk/Contraindication: VTE Present on Admission: No Risk Factor Score Per Nursin RFS Level Per Nursing on Admit: 4+=Very High SEBASTIEN CHAPARRO MD Jul 12, 2016 15:03
[2016-07-12 15:38] VITALS: BP 138/79
[2016-07-12] MEDS ORDERED: TPN IV SCH (17:45)
[2016-07-12] MEDS: eZETimibe 10 MG (ZETIA) TABLET PO SCH (20:03)
[2016-07-12] MEDS: ATORVASTATIN 80 MG (LIPITOR) TABLET PO SCH (20:03)
[2016-07-13] VITALS: BP 152/70
[2016-07-13] MEDS: fentaNYL INJECTION 100 MCG/2 ML AMP IV PRN ×4 (00:18→21:38)
[2016-07-13] MEDS: METOCLOPRAMIDE INJ 10 MG/2 ML (REGLAN) IVP SCH ×4 (00:18→17:50)
[2016-07-13] MEDS: inSUlin (REGULAR) HUMAN 1 UNIT/0.01 ML (CHARGE PER UNIT) SC SCH ×4 (00:31→18:04)
[2016-07-13] MEDS ORDERED: cefTRIAXone 1 GM (ROCEPHIN) VIAL ONE (05:05)
[2016-07-13] MEDS ORDERED: NORMAL SALINE (BAXTER MINI) 50 ML IV ONE (05:06)
[2016-07-13] MEDS: PANTOPRAZOLE 40 MG/10 ML (PROTONIX) VIAL IV SCH (05:21)
[2016-07-13] MEDS: cefTRIAXone 1 GM/NS 50 ML IVPB IV SCH ×2 (05:21)
[2016-07-13] MEDS: D5 1/2 NS 1000 ML IV SOLUTION 1,000 ML IV SCH ×2 (05:22→10:00)
[2016-07-13 08:14] VITALS: BP 146/77
[2016-07-13] MEDS ORDERED: diphenhydrAMINE 50 MG/ML INJ (BENADRYL) IVP ONE (08:30)
[2016-07-13] MEDS ORDERED: DEXAMETHASONE 4 MG/ML SDV (DECADRON) IV ONE (08:30)
--- NOTE | 2016-07-13 08:47 | Progress Note (SOAP) ---
Subjective Subjective/Events-last exam reports postnasal drainage and cough. NG output decreased to 300 mL overnight. Flatus in the colostomy Review of Systems General: No Chills, No Night Sweats, No Fatigue, No Malaise HEENT: No Head Aches, No Eye Pain, No Ear Pain, No Dysphasia, No Sinus Congestion, No Post Nasal Drip, No Sore Throat Pulmonary: Cough Cardiovascular: No: Chest Pain, Edema, Lt Headedness, Orthopnea, Palpitations, Paroxysmal Noc. Dyspnea Gastrointestinal: No: Abdominal Pain, Constipation, Diarrhea, Hematochezia, Melena, Nausea, Vomiting Genitourinary: No Dysuria, No Frequency, No Incontinence, No Hematuria, No Retention Musculoskeletal: No: arm pain, back pain, foot pain, hand pain, leg pain, neck pain, other, shoulder pain Neurological: No: Change in speech, Confusion, Incoordination, Numbness, Other , Seizures, Weakness Objective Exam Vital Signs Date Time Temp Pulse Resp B/P Pulse Ox O2 Delivery O2 Flow Rate FiO2 07/13/16 08:14 99.1 68 18 146/77 94 Room Air 07/13/16 00:00 97.4 73 18 152/70 94 Room Air 07/12/16 20:38 91 Room Air 07/12/16 20:00 94 Room Air 07/12/16 15:38 99.2 72 18 138/79 94 Room Air 07/12/16 09:48 91 Room Air I & O 07/13/16 07:00 Intake Total 115 ml Output Total 2900 ml Balance -2785 ml Capillary Refill : Less Than 3 Seconds General Appearance: No Apparent Distress HEENT: PERRL/EOMI Neck: Normal Inspection Respiratory: Lungs Clear Cardiovascular: Regular Rate, Rhythm No Edema No Gallop No JVD No Murmur Normal Peripheral Pulses Gastrointestinal: non tender soft Extremity: Normal Capillary Refill Normal Inspection Skin: Warm/Dry Results Lab Laboratory Tests 07/12/16 12:07: Glucometer 247H 07/12/16 12:10: Alanine Aminotransferase (ALT/SGPT) 12, Albumin 3.2, Alkaline Phosphatase 86, Anion Gap 7, Aspartate Amino Transf (AST/SGOT) 16, BUN/Creatinine Ratio 11, Blood Urea Nitrogen 11, Calcium Level 8.0L, Carbon Dioxide Level 25, Chloride Level 104, Creatinine 0.97, Estimat Glomerular Filtration Rate 58, Glucose Level 255H, Hematocrit 33L, Hemoglobin 10.3L, INR Comment 1.0, Magnesium Level 2.1, Mean Corpuscular Hemoglobin 27, Mean Corpuscular Hemoglobin Concent 32, Mean Corpuscular Volume 84, Mean Platelet Volume 10.1, Phosphorus Level 2.7, Platelet Count 200, Potassium Level 4.3, Prealbumin 13.5L, Prothrombin Time 12.5 , Red Blood Count 3.88L, Red Cell Distribution Width 17.3H, Sodium Level 136, Total Bilirubin 0.3, Total Protein 6.1L, Triglycerides Level 238H, White Blood Count 7.1 07/12/16 17:39: Glucometer 215H 07/13/16 00:27: Glucometer 248H 07/13/16 05:37: Glucometer 203H Microbiology 07/10/16 Blood Culture - Preliminary, Resulted No growth 07/10/16 Urine Culture - Final, Complete Assessment/Plan Assessment/Plan Assess & Plan/Chief Complaint partial small bowel obstruction. Metastatic colon cancer. Obstruction resolving. Continue nonoperative therapy. water-soluble contrast study will be obtained today. Due to allergy to iodine, dexamethasone and Benadryl would be administered prior to the commencement of the study. Diagnosis/Problems: Final Diagnosis metastatic colon cancer. Partial small bowel obstruction. Clinical Quality Measures Type of Care: Type of Care: Comfort Measures DVT/VTE Risk/Contraindication: VTE Present on Admission: No Risk Factor Score Per Nursin RFS Level Per Nursing on Admit: 4+=Very High ANOOP SINGH MD Jul 13, 2016 8:47 am
[2016-07-13] MEDS: BENAZEPRIL 20 MG (LOTENSIN) TAB PO SCH ×2 (09:00→11:15)
[2016-07-13] MEDS: DICLOFENAC 1% GEL 100 GM (VOLTAREN) TUBE TOP SCH ×4 (09:00→19:48)
[2016-07-13] MEDS ORDERED: 1/2 NS IV SOLUTION 1,000 ML IV SCH ×2 (10:15→17:00)
[2016-07-13] MEDS: ENOXAPARIN 40 MG/0.4 ML (LOVENOX) SYR SC SCH (11:07)
[2016-07-13 11:14] VITALS: BP 149/68
[2016-07-13] MEDS ORDERED: DIATRIZOATE MEGLUM/SODIUM 37% 120 ML (GASTROGRAFIN) NG ONE (11:15)
--- NOTE | 2016-07-13 11:36 | Diagnostic Imaging Report ---
EXAMINATION: Small bowel follow-through. TECHNIQUE: After administration of Gastrografin contrast via NG tube, multiple radiographs of the abdomen were performed at 15 and 30 minutes, then hourly as needed. INDICATION: Partial small bowel obstruction FINDINGS: Analytics Analyst view demonstrates an NG tube and surgical sutures in the upper abdomen with mild distention of small bowel loops. The small bowel demonstrates caliber near the upper limits of normal with no significant dilatation proximally. Distal small bowel loops appear only mildly dilated. The transit time through the small bowel is less than 30 minutes with no significant obstruction, and no gradient is identified. At 1-hour images, contrast is already seen in the colostomy bag within the left lower quadrant. IMPRESSION: Minimal dilatation of small bowel loops could be residual from recent resolving partial obstruction or secondary to enteritis. No significant obstruction at this time is seen. Dictated by: Dictated on workstation # [id number]
--- NOTE | 2016-07-13 11:46 | Physician Query-General Query ---
Physician Query-General Query to Physician: For clarification: 1. Please specify the sites of metastasis of this patient's cancer if possible. PHYSICIAN RESPONSE: Based on the clinical findings in the record, please respond to the query above on this document as an addendum. Possible, probable, or questionable diagnosis can be coded for INPATIENTS ONLY. Physician Response: Physician Response Local recurrence in pelvis is all I could see If you have questions please contact: Organ Tuner Electronic:Angelika Dick CCS,CCDS Ext:[phone] Thank you for your time and cooperation. Clinical Business System Consultant/Organ Tuner Electronic This is a permanent part of the medical record ANGELIKA DICK Jul 13, 2016 11:46 ANOOP SINGH MD Jul 15, 2016 12:44
[2016-07-13] MEDS ORDERED: CATHETER FLUSH 10 ML SYR IV PRN (14:45)
[2016-07-13] MEDS ORDERED: OXYC-471 PO (15:43)
[2016-07-13 16:35] VITALS: BP 142/65
--- NOTE | 2016-07-13 16:47 | Oncology Progress Note ---
Subjective Subjective/Events-last exam feeling better. Had small bowel follow through test today and did well. Walked in the room and [address] way with NG tube clamped. Data Review Labs Laboratory Tests 07/10/16 18:17: Glucometer 190H 07/11/16 00:39: Glucometer 204H 07/11/16 06:08: Glucometer 202H 07/11/16 12:06: Glucometer 217H 07/11/16 18:10: Glucometer 236H 07/12/16 00:16: Glucometer 228H 07/12/16 05:25: Calcium Level 7.8L, Glucose Level 199H 07/12/16 06:06: Glucometer 172H 07/12/16 12:07: Glucometer 247H 07/12/16 12:10: Calcium Level 8.0L, Glucose Level 255H, Hematocrit 33L, Hemoglobin 10.3L, Prealbumin 13.5L, Red Blood Count 3.88L, Red Cell Distribution Width 17.3H, Total Protein 6.1L, Triglycerides Level 238H 07/12/16 17:39: Glucometer 215H 07/13/16 00:27: Glucometer 248H 07/13/16 05:37: Glucometer 203H Physical Exam Vital Signs Vital Sign - Last 12Hours 07/10/16 00:52 Temp 97.8 Pulse 82 Resp 24 B/P 130/56 Pulse Ox 95 O2 Delivery Room Air Capillary Refill : Less Than 3 Seconds General Appearance: No Apparent Distress HEENT: PERRL/EOMI Neck: Non Tender Supple Respiratory: Chest Non Tender Lungs Clear Cardiovascular: Regular Rate, Rhythm No JVD Gastrointestinal: Non Tender Soft Distended Extremity: Non Tender No Calf Tenderness No Pedal Edema Neurologic/Psychiatric: Alert Oriented x3 Impression & Plan Impression & Plan 1. Recurrent and stage IV metastatic moderately differentiated adenocarcinoma, with large inflammatory colorectal mass on FOLFOX every 2 weeks s/p #13 (last course 03-22-15). Then changed to 5-FU and Avastine due to peripheral neuropathy. She is on a chemo break during [place] holiday season. 2. Small bowel obstruction, much better. Agree to D/C NG tube today. 3. Acute renal failure due to #2 on IVF. Cr back to normal now. 4. CAD, s/pstent palcement year 1999. Stable at this point. 5. Iron difficiency anemia from bleeding. Hb is stable today. 6. DM, on sliding scale while NPO. 9. 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 Anaphlastic reaction to IV contrast. 12. HTN. Clinical Quality Measures Type of Care: Type of Care: Comfort Measures DVT/VTE Risk/Contraindication: VTE Present on Admission: No Risk Factor Score Per Nursin RFS Level Per Nursing on Admit: 4+=Very High SEBASTIEN CHAPARRO MD Jul 13, 2016 16:47
[2016-07-13] MEDS: 1/2 NS IV SOLUTION 1,000 ML IV SCH (17:00)
[2016-07-13] MEDS ORDERED: [UNRECOGNIZED DRUG - OTHER] IV SCH ×34 (17:00)
[2016-07-13] MEDS ORDERED: SODIUM CHLORIDE IV SCH ×34 (17:00)
[2016-07-13] MEDS ORDERED: SODIUM ACETATE IV SCH ×34 (17:00)
[2016-07-13] MEDS: eZETimibe 10 MG (ZETIA) TABLET PO SCH (20:53)
[2016-07-13] MEDS: ATORVASTATIN 80 MG (LIPITOR) TABLET PO SCH (20:53)
[2016-07-14] VITALS: BP 140/63
[2016-07-14] MEDS: inSUlin (REGULAR) HUMAN 1 UNIT/0.01 ML (CHARGE PER UNIT) SC SCH ×4 (00:51→18:26)
[2016-07-14] MEDS: METOCLOPRAMIDE INJ 10 MG/2 ML (REGLAN) IVP SCH ×4 (00:52→17:15)
[2016-07-14] MEDS: PANTOPRAZOLE 40 MG/10 ML (PROTONIX) VIAL IV SCH (04:48)
[2016-07-14] MEDS: fentaNYL INJECTION 100 MCG/2 ML AMP IV PRN ×3 (04:48→15:14)
[2016-07-14] MEDS: cefTRIAXone 1 GM/NS 50 ML IVPB IV SCH ×2 (04:48)
[2016-07-14 08:39] VITALS: BP 146/67
[2016-07-14] MEDS: RT-ADVAIR HFA 45/21 MCG PER PUFF IH PRN ×2 (09:10→19:43)
[2016-07-14] MEDS: BENAZEPRIL 20 MG (LOTENSIN) TAB PO SCH (09:28)
[2016-07-14] MEDS: DICLOFENAC 1% GEL 100 GM (VOLTAREN) TUBE TOP SCH ×4 (09:28→20:17)
[2016-07-14] MEDS: ENOXAPARIN 40 MG/0.4 ML (LOVENOX) SYR SC SCH (10:40)
[2016-07-14 10:44] LABS: ALBUMIN 3.3 G/DL (3.2-4.5); BILIRUBIN,TOTAL 0.3 MG/DL (0.1-1.0); CALCIUM 8.6 MG/DL (8.5-10.1); CREATININE SERUM 1.1 MG/DL (0.60-1.30); MAGNESIUM 2.1 MG/DL (1.8-2.4); PHOSPHORUS 1.8 MG/DL (2.3-4.7); POTASSIUM 4.8 MMOL/L (3.6-5.0); TOTAL PROTEIN 6.5 G/DL (6.4-8.2)
[2016-07-14] MEDS ORDERED: SODIUM PHOSPHATE INJ ONE (11:25)
[2016-07-14] MEDS ORDERED: NS INJ ONE (11:25)
[2016-07-14] MEDS ORDERED: NS IV ONE (11:27)
[2016-07-14] MEDS ORDERED: SODIUM PHOSPHATE IV ONE (11:27)
[2016-07-14] MEDS: 1/2 NS IV SOLUTION 1,000 ML IV SCH (13:00)
[2016-07-14] MEDS: ONDANSETRON 4 MG/2 ML (SDV) Z0FRAN IV PRN (15:14)
[2016-07-14 16:00] VITALS: BP 122/56
--- NOTE | 2016-07-14 16:15 | Oncology Progress Note ---
Subjective Subjective/Events-last exam Pt felt well after NG tube removal and tolerated clear liquid diet this morning. Then she ordered wing and baked potato and she had a few bites and started to have nausea again. Data Review Labs Laboratory Tests 07/14/16 10:15 Laboratory Tests 07/11/16 18:10: Glucometer 236H 07/12/16 00:16: Glucometer 228H 07/12/16 05:25: Calcium Level 7.8L, Glucose Level 199H 07/12/16 06:06: Glucometer 172H 07/12/16 12:07: Glucometer 247H 07/12/16 12:10: Calcium Level 8.0L, Glucose Level 255H, Hematocrit 33L, Hemoglobin 10.3L, Prealbumin 13.5L, Red Blood Count 3.88L, Red Cell Distribution Width 17.3H, Total Protein 6.1L, Triglycerides Level 238H 07/12/16 17:39: Glucometer 215H 07/13/16 00:27: Glucometer 248H 07/13/16 05:37: Glucometer 203H 07/13/16 11:29: Glucometer 209H 07/13/16 18:01: Glucometer 369H 07/14/16 00:45: Glucometer 348H 07/14/16 10:15: Blood Urea Nitrogen 19H, Glucose Level 376H, Phosphorus Level 1.8L 07/14/16 12:19: Glucometer 381H Physical Exam Vital Signs Vital Sign - Last 12Hours 07/10/16 00:52 Temp 97.8 Pulse 82 Resp 24 B/P 130/56 Pulse Ox 95 O2 Delivery Room Air Capillary Refill : Less Than 3 Seconds General Appearance: No Apparent Distress Neck: Non Tender Respiratory: Chest Non Tender Lungs Clear Cardiovascular: Regular Rate, Rhythm No JVD Gastrointestinal: Soft Distended Tenderness Extremity: Non Tender No Calf Tenderness Neurologic/Psychiatric: Alert Oriented x3 Impression & Plan Impression & Plan 1. Recurrent and stage IV metastatic moderately differentiated adenocarcinoma, with large inflammatory colorectal mass on FOLFOX every 2 weeks s/p #13 (last course 03-22-15). Then changed to 5-FU and Avastine due to peripheral neuropathy. She is on a chemo break during [place] holiday season. 2. Small bowel obstruction, Off NG tube since last night. But she did not follow up the diet instruction and now became nausea again after wing and baked potato. I told patient she can only have clear liquid. She is on TPN. 3. Acute renal failure due to #2 on IVF. Cr back to normal now. 4. CAD, s/pstent palcement year 1999. Stable at this point. 5. Iron difficiency anemia from bleeding. Hb is stable today. 6. DM, on sliding scale. 9. 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 Anaphlastic reaction to IV contrast. 12. HTN. Clinical Quality Measures Type of Care: Type of Care: Comfort Measures DVT/VTE Risk/Contraindication: VTE Present on Admission: No Risk Factor Score Per Nursin RFS Level Per Nursing on Admit: 4+=Very High SEBASTIEN CHAPARRO MD Jul 14, 2016 16:15
--- NOTE | 2016-07-14 16:44 | Progress Note-Standard ---
Standard Progress Note Progress Notes/Assess & Plan Progress/Assessment & Plan 07/14/16:small bowel study negative for any mechanical obstruction. NG tube removed last night. Tolerating soft diet. We'll continue TPN today and possibly discharge tomorrow Final Diagnosis metastatic colon cancer. ANOOP SINGH MD Jul 14, 2016 4:44 pm
[2016-07-14] MEDS ORDERED: SODIUM ACETATE IV SCH ×12 (17:00)
[2016-07-14] MEDS ORDERED: [UNRECOGNIZED DRUG - OTHER] IV SCH ×12 (17:00)
[2016-07-14] MEDS ORDERED: ONDANSETRON 4 MG/2 ML (SDV) Z0FRAN IVP NR (17:00)
[2016-07-14] MEDS ORDERED: SODIUM CHLORIDE IV SCH ×12 (17:00)
[2016-07-14] MEDS: eZETimibe 10 MG (ZETIA) TABLET PO SCH (20:17)
[2016-07-14] MEDS: ATORVASTATIN 80 MG (LIPITOR) TABLET PO SCH (20:17)
[2016-07-15] VITALS: BP 131/59
[2016-07-15] MEDS ORDERED: METOCLOPRAMIDE INJ 10 MG/2 ML (REGLAN) IVP SCH
[2016-07-15] MEDS: METOCLOPRAMIDE INJ 10 MG/2 ML (REGLAN) IVP SCH ×2 (00:33→06:06)
[2016-07-15] MEDS: inSUlin (REGULAR) HUMAN 1 UNIT/0.01 ML (CHARGE PER UNIT) SC SCH ×2 (00:33→06:06)
[2016-07-15] MEDS: fentaNYL INJECTION 100 MCG/2 ML AMP IV PRN ×3 (00:34→09:33)
[2016-07-15] MEDS: PANTOPRAZOLE 40 MG/10 ML (PROTONIX) VIAL IV SCH (04:45)
[2016-07-15] MEDS: cefTRIAXone 1 GM/NS 50 ML IVPB IV SCH ×2 (04:45)
[2016-07-15 08:25] VITALS: BP 126/62
[2016-07-15] MEDS: 1/2 NS IV SOLUTION 1,000 ML IV SCH (09:00)
[2016-07-15] MEDS: BENAZEPRIL 20 MG (LOTENSIN) TAB PO SCH (09:33)
[2016-07-15] MEDS: DICLOFENAC 1% GEL 100 GM (VOLTAREN) TUBE TOP SCH (09:33)
[2016-07-15] MEDS ORDERED: CHLORASEPTIC SPRAY 177 ML LIQUID MC PRN (11:30)
--- NOTE | 2016-07-15 12:28 | Progress Note (SOAP) ---
Subjective Subjective/Events-last exam Hyperglycemia last night, currently improved. Reported bloating last night, able to tolerate liquid diet. TPN off. No abdominal distention. Could be discharged home Review of Systems General: No Chills, No Night Sweats, No Fatigue, No Malaise HEENT: No Head Aches, No Eye Pain, No Ear Pain, No Dysphasia, No Sinus Congestion, No Post Nasal Drip, No Sore Throat Pulmonary: No Dyspnea, No Cough, No Pleuritic Chest Pain Cardiovascular: No: Chest Pain, Edema, Lt Headedness, Orthopnea, Palpitations, Paroxysmal Noc. Dyspnea Gastrointestinal: No: Abdominal Pain, Constipation, Diarrhea, Hematochezia, Melena, Nausea, Vomiting Genitourinary: No Dysuria, No Frequency, No Incontinence, No Hematuria, No Retention Musculoskeletal: No: arm pain, back pain, foot pain, hand pain, leg pain, neck pain, other, shoulder pain Neurological: No: Change in speech, Confusion, Incoordination, Numbness, Other , Seizures, Weakness Objective Exam Vital Signs Date Time Temp Pulse Resp B/P Pulse Ox O2 Delivery O2 Flow Rate FiO2 07/15/16 08:25 96.9 72 16 126/62 93 Room Air 07/15/16 00:00 96.9 70 18 131/59 95 Room Air 07/14/16 19:43 98 Room Air 07/14/16 16:00 98.5 60 18 122/56 96 Room Air I & O 07/15/16 07:00 Intake Total 1620 ml Output Total 700 ml Balance 920 ml Capillary Refill : Less Than 3 Seconds General Appearance: No Apparent Distress HEENT: PERRL/EOMI Neck: Full Range of Motion Normal Inspection Non Tender Supple Respiratory: Lungs Clear Cardiovascular: Regular Rate, Rhythm Gastrointestinal: non tender soft Extremity: Normal Capillary Refill Results Lab Laboratory Tests 07/14/16 18:06: Glucometer 468*H 07/15/16 00:22: Glucometer 273H 07/15/16 05:26: Glucometer 219H Microbiology 07/10/16 Blood Culture - Preliminary, Resulted No growth 07/10/16 Urine Culture - Final, Complete Assessment/Plan Assessment/Plan Assess & Plan/Chief Complaint partial small bowel obstruction. Metastatic colon cancer. Obstruction resolving. Continue nonoperative therapy. water-soluble contrast study will be obtained today. Due to allergy to iodine, dexamethasone and Benadryl would be administered prior to the commencement of the study. Resolved partial obstruction. Metastatic colon cancer. Could be discharged home. Diagnosis/Problems: Final Diagnosis Partial small bowel obstruction. Resolved. Clinical Quality Measures Type of Care: Type of Care: Comfort Measures DVT/VTE Risk/Contraindication: VTE Present on Admission: No Risk Factor Score Per Nursin RFS Level Per Nursing on Admit: 4+=Very High ANOOP SINGH MD Jul 15, 2016 12:27
[2016-07-15 13:45] VITALS: BP 128/88
--- NOTE | 2016-07-31 08:19 | DISCHARGE SUMMARY ---
DATE OF ADMISSION: 07/10/2016 DATE OF DISCHARGE: 07/15/2016 DIAGNOSIS: 1. Partial small bowel obstruction. 2. Recurrent rectal carcinoma. BRIEF HISTORY: This lady with recurrent rectal carcinoma in her pelvis, presented with partial small bowel obstruction. She responded to nonoperative therapy and a contrast study was negative for any mechanical obstruction. At the time of discharge, she was tolerating a soft diet and her colostomy was functioning adequately. I have encouraged her to return for a follow-up in a couple of weeks. Job ID: [id number] Dictated Date: 07/30/2016 14:58:45 Plumbing Assembler Date: 07/31/2016 08:16:14/casi COLBERT
== END 2016-07-15 13:45 | disposition home or self-care (01) | DRG 327 ==
LOC: EDUNIT# 00:06 → ER 00:07 → 4TH 03:55
PROVIDERS: ADMIT Surgery; ATTEND Surgery
PROC: 0D9470Z Drainage of Esophagogastric Junction with Drainage Device, Via Natural or Artificial Opening (ICD-10-PCS; principal; 2016-07-10)
DX: K56.69 Other intestinal obstruction (principal); K43.5 Parastomal hernia without obstruction or gangrene; C19 Malignant neoplasm of rectosigmoid junction; C79.89 Secondary malignant neoplasm of other specified sites; N17.9 Acute kidney failure, unspecified; E66.01 Morbid (severe) obesity due to excess calories; Z68.42 Body mass index [BMI] 45.0-49.9, adult; E86.0 Dehydration; J44.9 Chronic obstructive pulmonary disease, unspecified; J45.909 Unspecified asthma, uncomplicated; I25.10 Atherosclerotic heart disease of native coronary artery without angina pectoris; D50.0 Iron deficiency anemia secondary to blood loss (chronic); E11.22 Type 2 diabetes mellitus with diabetic chronic kidney disease; I12.9 Hypertensive chronic kidney disease with stage 1 through stage 4 chronic kidney disease, or unspecified chronic kidney disease; N18.9 Chronic kidney disease, unspecified; E11.65 Type 2 diabetes mellitus with hyperglycemia; Z91.041 Radiographic dye allergy status; Z93.3 Colostomy status; Z87.891 Personal history of nicotine dependence; Z95.5 Presence of coronary angioplasty implant and graft; Z79.4 Long term (current) use of insulin
CPT/HCPCS: 36415; 51702; 74022; 74176; 74250; 80048; 80053; 81000; 82962; 83735; 84100; 84134; 84478; 85025; 85027; 85610; 87040; 87088; 94640; 94760; 96361; 96365; 96375

== ENCOUNTER 2016-07-17 19:12 | Inpatient (IN) | payer MEDICARE, MEDICAID ==
[~2016-07-17] VITALS: Ht 160 cm; Wt 114.5 kg
--- OUTSIDE RECORDS SUMMARY | 2016-07-17 19:20 | XMS REPORT | Continuity of Care Document ---
Author Author [facility] Organization [facility] Address Unknown Phone Unavailable Care Team Providers Care Planishing Press Operator Name Role Phone NO, LOCAL PHYSICIAN PCP Unavailable Insurance Providers Payer Name Policy Number Subscriber [facility] [id number] Tanna Blanco 18 Self / Same As Patient Advance Directives Directive Response Recorded Date/Time Advance Directives Yes 10/22/14 2:41pm Health Care Power of Harp Regulator Y Kira ric and Bri larios 10/22/14 [...] DAILY 03-26-14 #30 LAST FILLED 07/31/14 Discontinued [place]-3 Fatty Acids 2,000 Mg PO DAILY 07/31/14 [...] 10/29/14 Address: [address] [place] [address] Reason(s) for Referral: 13:00 Additional Instructions/Education REG DIET Functional Status Query Response Date Recorded Comprehension Ability Understands Concepts October 25, 2014 9:00am Allergies, Adverse Reactions, Alerts Allergen Type Severity Reaction Status Last Updated Iodinated Contrast Media - IV Dye Allergy Unknown SOB Active 07/30/14 Penicillins ([id number]) Allergy Unknown NAUSEA Active 07/30/14 Morphine Allergy Unknown NAUSEA Active 07/30/14 Codeine Allergy Unknown HIVES, VOMITING Active 07/30/14 Cephalexin Allergy Unknown ABDOMINAL PAIN Active 07/30/14 Erythromycin base Allergy Unknown NAUSEA Active 07/30/14 Clindamycin Allergy Severe VOMITING/RASH Active 10/22/14 sulfamethoxazole ([id number]) Allergy Unknown ITCHINESS Active 07/30/14 nitrofurantoin ([id number]) Allergy Unknown VOMITING Active 07/30/14 Trimethoprim Allergy Unknown ITCHINESS Active 07/30/14 ciprofloxacin ([id number]) Allergy Unknown VOMITING Active 07/30/14 adhesive ([id number]) Allergy Unknown HIVES Active 07/30/14 Clarithromycin Allergy [...] F (97.6 - 99.5) Temperature (Calculated Celsius) 37.52292 degrees C (36.4 - 37.5) Temperature Source Temporal Pulse Rate (adult) 91 bpm (60 - 90) Respiratory Rate 20 bpm (12 - 24) O2 Sat by Pulse Oximetry 96 % (88 - 100) Blood Pressure 116/70 mm Hg Pain Pain Intensity 0 Height (Feet) 5 feet Height (Inches) 3.00 inches Height (Calculated Centimeters) 160.903042 cm Weight (Pounds) 251 pounds Weight (Ounces) 4.0 oz Weight (Calculated Grams) 472226.084 gm Weight (Calculated Kilograms) 113.417662 kilograms Calculated BMI 44.46 Results Laboratory Results [...] 5-9 09/03/2014 12:23pm 09/03/2014 12:37pm Urine Specific [place] 1.010 * 1.016-1.022 09/03/2014 12:23pm 2014 12:37pm [...] 10/22/2014 8:57am 2014 7:45am TESTING PERFORMED BY: [facility] [id number] [place] [address] White Blood Count 5.6 10^3/uL 4.3-11.0 10/24/2014 [...] Encounters Encounter Location Date/Time Discharged Inpatient [facility] 10/22/14 12:29pm Discharged Recurring [facility] 09/17/14 12:30pm Discharged Recurring [facility] 07/26/14 9:57am
[2016-07-17] MEDS ORDERED: ONDANSETRON 4 MG (ZOFRAN) ORAL DISSOLVE TAB PO ONE (20:30)
[2016-07-17 20:36] LABS: BILIRUBIN,URINE NEGATIVE (NEGATIVE); KETONES,URINE NEGATIVE (NEGATIVE); LEUKOCYTE ESTERASE ,URINE 2+ (NEGATIVE); NITRITE,URINE NEGATIVE (NEGATIVE); PH,URINE 8 (5-9); PROTEIN,URINE 1+ (NEGATIVE); UROBILINOGEN,URINE NORMAL (NORMAL)
[2016-07-17] MEDS ORDERED: KETOROLAC 30 MG/ML VIAL IVP ONE (20:45)
[2016-07-17] MEDS ORDERED: FAMOTIDINE 20MG/2ML IV (PEPCID) IVP ONE (20:45)
[2016-07-17 21:04] LABS: BASOPHILS % (AUTO) 0 % (0-10); EOSINOPHILS # (AUTO) 0.1 10^3/uL (0.0-0.3); EOSINOPHILS % (AUTO) 1 % (0-10); LYMPHOCYTES # (AUTO) 1.4 X 10^3 (1.0-4.0); LYMPHOCYTES % (AUTO) 14 % (12-44); MEAN CORPUSCULAR HEMOGLOBIN 26 PG (25-34); MEAN CORPUSCULAR HGB CONC 32 G/DL (32-36); MEAN CORPUSCULAR VOLUME 81 FL (80-99); MEAN PLATELET VOLUME 10.3 FL (7.4-10.4); MONOCYTES # (AUTO) 0.9 X 10^3 (0.0-1.0); MONOCYTES % (AUTO) 9 % (0-12); NEUTROPHILS # (AUTO) 7.9 X 10^3 (1.8-7.8); NEUTROPHILS % (AUTO) 76 % (42-75); PLATELET COUNT 302 10^3/uL (130-400); RED BLOOD COUNT 4.62 10^6/uL (4.35-5.85); RED CELL DISTRIBUTION WIDTH 17.4 % (10.0-14.5); WHITE BLOOD COUNT 10.4 10^3/uL (4.3-11.0)
[2016-07-17 21:31] LABS: ALBUMIN 3.8 G/DL (3.2-4.5); BILIRUBIN,TOTAL 0.5 MG/DL (0.1-1.0); CALCIUM 9.3 MG/DL (8.5-10.1); CREATININE SERUM 0.97 MG/DL (0.60-1.30); POTASSIUM 4.1 MMOL/L (3.6-5.0); TOTAL PROTEIN 7.1 G/DL (6.4-8.2)
--- NOTE | 2016-07-17 23:08 | ED Abdominal Pain ---
General Chief Complaint: Abdominal/GI Problems Stated Complaint: FEVER VOMITING AB PAIN Nursing Triage Note: luq abdominal pain, n/v, burining urinations since 1729. dc'd from hospital 07/15/16 for sbo Sepsis Screen: No Definite Risk Source of Information: Patient, RN Notes Reviewed Exam Limitations: No Limitations History of Present Illness Time Seen By Provider: 20:25 Initial Comments As above. Known metastatic colon Ca. Last chemo > 3 weeks ago. Timing/Duration: 1-3 Hours Severity/Quality: Moderate Location: [facility]Q Radiation: No Radiation Activities at Onset: Rest Modifying Factors: Worsens With Urinating, Worsens With Vomiting Associated Symptoms: Nausea/Vomiting Allergies and Home Medications Allergies Coded Allergies: clindamycin (Verified Allergy, Severe, VOMITING/RASH, 10/22/14) Iodinated Contrast Media - IV Dye (Unverified Allergy, Unknown, SOB, ) Penicillins (Unverified Allergy, Unknown, NAUSEA, 07/30/14) adhesive (Unverified Allergy, Unknown, HIVES, Pt has had Duragesic patches in the past, 07/19/16) cephalexin (Unverified Allergy, Unknown, ABDOMINAL PAIN, 07/30/14) codeine (Unverified Allergy, Unknown, HIVES, VOMITING, HAS TAKEN PERCOCET W/O ISSUE, 06/23/16) erythromycin base (Unverified Allergy, Unknown, NAUSEA, 07/30/14) levofloxacin (Unverified Allergy, Unknown, HIVES, 07/30/14) nitrofurantoin (Unverified Allergy, Unknown, VOMITING, 07/30/14) sulfamethoxazole (Unverified Allergy, Unknown, ITCHINESS, 07/30/14) trimethoprim (Unverified Allergy, Unknown, ITCHINESS, 07/30/14) ciprofloxacin (Unverified Adverse Reaction, Unknown, VOMITING, 07/19/16) clarithromycin (Unverified Adverse Reaction, Unknown, NAUSEA, 07/19/16) morphine (Unverified Adverse Reaction, Unknown, NAUSEA, 07/19/16) Home Medications Albuterol/Ipratropium 3 Ml Nebu 3 ML INH QID PRN PRN WHEEZING (Reported) Benazepril HCl 20 Mg Tablet 20 MG PO DAILY (Reported) Budesonide/Formoterol Fumarate 10.2 Gm Hfa.aer.ad 2 PUFF IH BID PRN PRN SHORTNESS OF BREATH (Reported) Docusate Sodium 100 Mg Tablet 200 MG PO DAILY (Reported) TAKES 2 (100MG) TABLETS Ezetimibe/Simvastatin 1 Each Tablet 1 TAB PO DAILY (Reported) LAST FILLED #30 03-24-16 Fentanyl 1 Each Patch.td72 #10 100 MCG TD Q72H Prescribed by: MARLYS CHAPARRO on 07/20/16 1735 Glipizide 5 Mg Tablet 5 MG PO BID (Reported) Hydrochlorothiazide 25 Mg Tablet 25 MG PO DAILY (Reported) Insulin Regular, Human 1,000 Units/10 Ml Soln 35 UNITS SQ AC (Reported) Linezolid 600 Mg Tablet 10Days 600 MG PO BID Prescribed by: MARLYS CHAPARRO on 07/20/16 1726 Mag Hydrox/Al Hydrox/Simeth 770 Ml Oral.susp 20 ML PO QID PRN PRN INDIGESTION ( Reported) Montelukast Sodium 10 Mg Tablet 10 MG PO DAILY (Reported) Nitroglycerin 0.4 Mg Tab.subl 0.4 MG SL UD PRN PRN CHEST PAIN (Reported) PLACE 1 TABLET UNDER TONGUE EVERY 5 MINUTES X3 DOSES NEEDED FOR CHEST PAIN Olopatadine HCl 5 Ml Drops 1 DROP OU BID (Reported) LAST FILLED 12-11-15 [place]-3 Fatty Acids 1,000 Mg Capsule 1,000 MG PO DAILY (Reported) Ondansetron 4 Mg Tab.rapdis 4 MG PO Q4H PRN PRN NAUSEA (Reported) Oxycodone HCl/Acetaminophen 1 Each Tablet 1 TAB PO Q4H PRN PRN PAIN (Reported) Review of Systems Constitutional: see HPI Gastrointestinal: See HPI Abdomen Distended Abdominal Pain Diarrhea Nausea Vomiting Genitourinary: See HPI Burning All Other Systems Reviewed Negative Unless Noted: Yes (Negative excepted noted.) Past Yafsdho-Bsbzia-Qfzbrf Hx Patient Social History Alcohol Use: Denies Use Recreational Drug Use: No Smoking Status: Former Smoker Type Used: Cigarettes Former Smoker/When Quit: November 13, 1973 Recent Foreign Travel: No Contact w/Someone Who Travel: No Recent Infectious Disease Expo: No Recent Hopitalizations: Yes (dc'd 07/15/16) Physical Abuse Screen: No Sexual Abuse: No Immunizations Up To Date Tetanus Booster (TDap): Less than 5yrs PED Vaccines UTD: No Date of Pneumonia Vaccine: May 11, 2016 Date of Influenza Vaccine: May 11, 2016 Seasonal Allergies Seasonal Allergies: Yes Surgeries HX Surgeries: Yes Surgeries: Abdominal, Appendectomy, Breast, Cardiac, Coronary Stent, Gallbladder, Hysterectomy, Vascular Surgery Respiratory Hx Respiratory Disorders: Yes Respiratory Disorders: Sleep Apnea, COPD Cardiovascular Hx Cardiac Disorders: Yes Cardiac Disorders: Coronary Artery Disease, Heart Attack, High Cholesterol, Hypertension Neurological Hx Neurological Disorders: No Neurological Disorders: Headaches /Migraines Reproductive System : No Hx Reproductive Disorders: No [employer]YING SQU[employer] History: Hysterectomy, Menopausal Genitourinary Hx Genitourinary Disorders: Yes Genitourinary Disorders: UTI-Chronic Gastrointestinal Hx Gastrointestinal Disorders: Yes (sbo, colostomy) Gastrointestinal Disorders: Gastrointestinal Bleed Musculoskeletal Hx Musculoskeletal Disorders: Yes Musculoskeletal Disorders: Osteoporosis, Arthritis Endocrine Hx Endocrine Disorders: Yes Endocrine Disorders: Diabetes, Insulin dep HEENT HX ENT Disorders: Yes HEENT Disorders: Cataract Loss of Vision: Denies Hearing Impairment: Denies Cancer Hx Cancer: Yes Cancer: Colon Psychosocial Hx Psychiatric Problems: Yes Behavioral Health Disorders: Anxiety Integumentary HX Skin/Integumentary Disorder: No Blood Transfusions Hx Blood Disorders: Yes Adverse Reaction to a Blood Tr: No Family Medical History Significant Family History: COPD Family Medial History: Abdominal aortic aneurysm G8 BROTHER Arthritis G8 BROTHER Asthma G8 SISTER Cardiovascular disease 19 FATHER Cataracts 19 MOTHER Completed stroke 19 MOTHER Diabetes mellitus 19 FATHER Hypercholesterolemia G8 BROTHER Myocardial infarction 19 FATHER Respiratory disorder 19 FATHER 19 MOTHER No Family History of: AIDS Lester's disease Alcoholism Alzheimer's disease Aphasia Cancer of mouth Colon cancer Congenital disease Congenital heart disease Coronary thrombosis Cystic fibrosis Deafness or hearing loss Dementia Drug abuse Dysphasia Fibrocystic disease of breast Gastroenteritis Glaucoma Headache disorder Hypertension Infertility Kidney disease Neoplasm Osteoporosis Parkinson's disease Prostate cancer Psychosocial problem Seizure disorder Severe allergy Thyroid disease Tuberculosis Visual disorder Physical Exam Vital Signs Capillary Refill : Less Than 3 Seconds General Appearance: WD/WN no apparent distress obese Respiratory: no respiratory distress Cardiovascular: tachycardia Gastrointestinal: soft guarding (mid left of midline)No rebound, tenderness ( left mid of midline) Rectal: deferred Neurologic/Psychiatric: no motor/sensory deficits alert oriented x 3 depressed affect Skin: warm/dry Progress/Results/Core Measures Results/Orders Lab Results Laboratory Tests Test 07/17/16 20:25 07/17/16 20:50 Range/Units Urine Bacteria FEW H /HPF Urine Bilirubin NEGATIVE NEGATIVE Urine Casts NONE /LPF Urine Clarity SLIGHTLY CLOUDY Urine Color YELLOW Urine Crystals NONE /LPF Urine Culture Indicated YES Urine Glucose (UA) NEGATIVE NEGATIVE Urine Ketones NEGATIVE NEGATIVE Urine Leukocyte Esterase 2+ H NEGATIVE Urine Mucus NEGATIVE /LPF Urine Nitrite NEGATIVE NEGATIVE Urine Protein 1+ H NEGATIVE Urine RBC 50-100 H /HPF Urine RBC (Auto) 4+ H NEGATIVE Urine Specific [place] 1.010 L 1.016-1.022 Urine Squamous Epithelial Cells 2-5 /HPF Urine Urobilinogen NORMAL NORMAL MG/DL Urine WBC 5-10 H /HPF Urine pH 8 5-9 Alanine Aminotransferase (ALT/SGPT) 42 0-55 U/L Albumin 3.8 3.2-4.5 G/DL Alkaline Phosphatase 107 40-136 U/L Anion Gap 13 5-14 MMOL/L Aspartate Amino Transf (AST/SGOT) 32 5-34 U/L BUN/Creatinine Ratio 19 Basophils # (Auto) 0.0 0.0-0.1 10^3/uL Basophils (%) (Auto) 0 0-10 % Blood Urea Nitrogen 18 7-18 MG/DL Calcium Level 9.3 8.5-10.1 MG/DL Carbon Dioxide Level 29 21-32 MMOL/L Carcinoembryonic Antigen 2.7 0.0-5.0 ng/mL Chloride Level 99 98-107 MMOL/L Creatinine 0.97 0.60-1.30 MG/DL Eosinophils # (Auto) 0.1 0.0-0.3 10^3/uL Eosinophils (%) (Auto) 1 0-10 % Estimat Glomerular Filtration Rate 58 Glucose Level 134 H 70-105 MG/DL Hematocrit 38 35-52 % Hemoglobin 12.1 11.5-16.0 G/DL Lipase 26 8-78 U/L Lymphocytes # (Auto) 1.4 1.0-4.0 X 10^3 Lymphocytes (%) (Auto) 14 12-44 % Mean Corpuscular Hemoglobin 26 25-34 PG Mean Corpuscular Hemoglobin Concent 32 32-36 G/DL Mean Corpuscular Volume 81 80-99 FL Mean Platelet Volume 10.3 7.4-10.4 FL Monocytes # (Auto) 0.9 0.0-1.0 X 10^3 Monocytes (%) (Auto) 9 0-12 % Neutrophils # (Auto) 7.9 H 1.8-7.8 X 10^3 Neutrophils (%) (Auto) 76 H 42-75 % Platelet Count 302 130-400 10^3/uL Potassium Level 4.1 3.6-5.0 MMOL/L Red Blood Count 4.62 4.35-5.85 10^6/uL Red Cell Distribution Width 17.4 H 10.0-14.5 % Sodium Level 141 135-145 MMOL/L Total Bilirubin 0.5 0.1-1.0 MG/DL Total Protein 7.1 6.4-8.2 G/DL White Blood Count 10.4 4.3-11.0 10^3/uL Micro Results Microbiology 07/17/16 Urine Culture - Final, Complete Enterococcus Faecium My Orders Orders-DIA SANFORD DO Ua Culture If Indicated (07/17/16 20:29) Ondansetron Oral Dissolve Tab (Zofran (07/17/16 20:30) Saline Lock/Iv-Start (07/17/16 20:37) Cbc With Automated Diff (07/17/16 20:37) Comprehensive Metabolic Panel (07/17/16 20:37) Lipase (07/17/16 20:37) Famotidine Injection (Pepcid Injection) (07/17/16 20:45) Ketorolac Injection (Toradol Injection) (07/17/16 20:45) Urine Culture (07/17/16 20:25) Ct Abdomen/Pelvis Wo (07/17/16 21:58) Medications Given in ED Vital Signs/I&O Blood Pressure Mean: 121 Diagnostic Imaging Diagonstic Imaging: CT Plain Films/CT/US/NM/MRI: abdomen, pelvis Reviewed: Reviewed Night [facility] Study ((+) partial SBO) Departure Communication Time/Spoke to Admitting Phy: 22:00 Impression Impression: Primary Impression: Nausea and vomiting Additional Impressions: Partial small bowel obstruction Abdominal pain Known metatatic colon cancer UTI (urinary tract infection) Disposition: ADMITTED INPATIENT Condition: Stable Decision to Admit Reason: Admit from ER (General) Decision to Admit/Date: Jul 17, 2016 Time/Decision to Admit Time: 22:00 Departure-Patient Inst. Referrals: NO,LOCAL PHYSICIAN (PCP/Family) Primary Care Physician Scripts Fentanyl (Duragesic Patch 100MCG)1 Each Patch.[id number] Mcg TD Q72H #10 PATCH Prov:SEBASTIEN CHAPARRO MD 07/20/16 Linezolid (Zyvox)600 Mg [id number] Mg PO BID 10 Days Prov:SEBASTIEN CHAPARRO MD 07/20/16 DIA SANFORD DO Jul 17, 2016 23:08 Departure Communication Time/Spoke to Admitting Phy: 22:00 Impression Impression: Primary Impression: Nausea and vomiting Additional Impressions: Partial small bowel obstruction Abdominal pain Known metatatic colon cancer Disposition: ADMITTED INPATIENT Condition: Stable Decision to Admit Reason: Admit from ER (General) Decision to Admit/Date: Jul 17, 2016 Time/Decision to Admit Time: 22:00 Departure-Patient Inst. Referrals: NO,LOCAL PHYSICIAN (PCP/Family) Primary Care Physician DIA SANFORD DO Jul 17, 2016 23:08
[2016-07-18] VITALS: BP 118/74
[2016-07-18] MEDS: fentaNYL INJECTION 100 MCG/2 ML AMP IV PRN ×5 (00:31→20:33)
[2016-07-18] MEDS: NS IV 1000 ML 1,000 ML IV SCH ×3 (00:31→16:49)
[2016-07-18 04:00] VITALS: BP 146/72
[2016-07-18] MEDS: ONDANSETRON 4 MG/2 ML (SDV) Z0FRAN IV PRN ×2 (06:33→13:42)
[2016-07-18 07:55] VITALS: BP 142/67
--- NOTE | 2016-07-18 08:14 | Diagnostic Imaging Report ---
PROCEDURE: CT abdomen and pelvis without contrast. TECHNIQUE: Multiple contiguous axial images were obtained through the abdomen and pelvis without the use of intravenous contrast. INDICATION: Left upper quadrant pain with nausea and vomiting COMPARISON: July 10, 2016 FINDINGS: Minimal left basilar scarring and/or atelectasis. Otherwise, the visualized lung bases are clear. Postsurgical changes involving the abdominal wall are again noted. The unenhanced liver, spleen, adrenal glands, and pancreas are unremarkable. Right renal cyst is again identified. Additional 1 cm hypodensity within the inferior pole of the right kidney is stable from prior examination. A 1 mm nonobstructing calculus within the inferior pole of the left kidney. Otherwise, the left kidney is unremarkable. Moderate vascular calcifications within the abdominal aorta and its branch vessels without aneurysmal dilatation of the abdominal aorta. The urinary bladder is decompressed, therefore not well evaluated. A 9.3 x 9.9 cm heterogeneous mass is identified within the midline lower pelvis. This appears similar to the prior examination. However, of note, this is not definitely seen in July 2014. Additionally, the uterus was also not seen at this location in 2014. Postsurgical changes of the bowel are identified, including creation of a left lower quadrant colostomy. Multiple loops of small bowel are dilated, measuring greater than 5 cm. Possible transition point within the right lower quadrant. No pneumatosis. No significant adenopathy, free air, or free fluid within the abdomen or pelvis. Scattered osseous degenerative changes without acute osseous abnormality. Impression: Findings concerning for small bowel obstruction with possible transition point within the right lower quadrant. Heterogeneous masslike density within the lower pelvis. Although the appearance is suggestive of a fibroid uterus, no definite uterus is seen on prior examination from July 2014. Therefore, additional mass lesion should be considered. CT-guided biopsy could be performed as clinically indicated. Tiny nonobstructing left renal calculus. Additional findings as above. Report was called to Dr. Chavez by estrella at 7:39 am . Dictated by: Dictated on workstation # [id number]
[2016-07-18] MEDS: FAMOTIDINE 20MG/2ML IV (PEPCID) IV SCH ×2 (08:34→20:31)
--- NOTE | 2016-07-18 09:33 | History & Physicial ---
History of Present Illness History of Present Illness Reason for visit/HPI This is a 66 year old lady, patient of Dr Alek Pleitez, who has been admitted with complaints of abdominal pain and dysuria which started about 6 hours prior to admission. She is known to have metastatic colon cancer with tumor progression and last chemotherapy (FOLFOX plus Avastin )administration was on . Patient was recently discharged from hospital after presenting with similar complaints. Latest CT scan shows a pelvic mass that was seen on the study but was not seen on the Jul 2014 done 2 years ago; Date of Admission Jul 17, 2016 at 23:14 I consulted on this patient on 07/18/16 09:29 Attending Physician Geoff Velasquez DO Admitting Physician Kate,Local Physician Consult General Surgery, Dr. Velasquez Allergies and Home Medications Allergies Coded Allergies: clindamycin (Verified Allergy, Severe, VOMITING/RASH, 10/22/14) Iodinated Contrast Media - IV Dye (Unverified Allergy, Unknown, SOB, ) Penicillins (Unverified Allergy, Unknown, NAUSEA, 07/30/14) adhesive (Unverified Allergy, Unknown, HIVES, 07/30/14) cephalexin (Unverified Allergy, Unknown, ABDOMINAL PAIN, 07/30/14) ciprofloxacin (Unverified Allergy, Unknown, VOMITING, 07/30/14) clarithromycin (Unverified Allergy, Unknown, NAUSEA, 07/30/14) codeine (Unverified Allergy, Unknown, HIVES, VOMITING, HAS TAKEN PERCOCET W/O ISSUE, 06/23/16) erythromycin base (Unverified Allergy, Unknown, NAUSEA, 07/30/14) levofloxacin (Unverified Allergy, Unknown, HIVES, 07/30/14) morphine (Unverified Allergy, Unknown, NAUSEA, 07/30/14) nitrofurantoin (Unverified Allergy, Unknown, VOMITING, 07/30/14) sulfamethoxazole (Unverified Allergy, Unknown, ITCHINESS, 07/30/14) trimethoprim (Unverified Allergy, Unknown, ITCHINESS, 07/30/14) Home Medications Albuterol/Ipratropium 3 Ml Nebu 3 ML INH QID PRN PRN WHEEZING (Reported) Benazepril HCl 20 Mg Tablet 20 MG PO DAILY (Reported) Budesonide/Formoterol Fumarate 10.2 Gm Hfa.aer.ad 2 PUFF IH BID PRN PRN SHORTNESS OF BREATH (Reported) Docusate Sodium 100 Mg Tablet 200 MG PO DAILY (Reported) TAKES 2 (100MG) TABLETS Ezetimibe/Simvastatin 1 Each Tablet 1 TAB PO DAILY (Reported) LAST FILLED #30 03-24-16 Glipizide 5 Mg Tablet 5 MG PO BID (Reported) Hydrochlorothiazide 25 Mg Tablet 25 MG PO DAILY (Reported) Insulin Glargine,Hum.rec.anlog 100 Unit/1 Ml Vial 45 UNITS SQ HS (Reported) Insulin Regular, Human 1,000 Units/10 Ml Soln 35 UNITS SQ AC (Reported) Mag Hydrox/Al Hydrox/Simeth 770 Ml Oral.susp 20 ML PO QID PRN PRN INDIGESTION ( Reported) Montelukast Sodium 10 Mg Tablet 10 MG PO DAILY (Reported) Nitroglycerin 0.4 Mg Tab.subl 0.4 MG SL UD PRN PRN CHEST PAIN (Reported) PLACE 1 TABLET UNDER TONGUE EVERY 5 MINUTES X3 DOSES NEEDED FOR CHEST PAIN Olopatadine HCl 5 Ml Drops 1 DROP OU BID (Reported) LAST FILLED 12-11-15 [place]-3 Fatty Acids 1,000 Mg Capsule 1,000 MG PO DAILY (Reported) Ondansetron 4 Mg Tab.rapdis 4 MG PO Q4H PRN PRN NAUSEA (Reported) Oxycodone HCl/Acetaminophen 1 Each Tablet 1 TAB PO Q4H PRN PRN PAIN (Reported) Past Jvijsfa-Lmysph-Znurae Hx Patient Social History Marrital Status: Alcohol Use: Denies Use Recreational Drug Use: No Smoking Status: Former Smoker Former smoker/When Quit: November 13, 1973 Type Used: Cigarettes Physical Abuse Screen: No Sexual Abuse: No Recent Foreign Travel: No Contact w/other who traveled: No Recent Hopitalizations: Yes (RECENTLY DISCHARGED THE 07/15/2016) Recent Infectious Disease Expo: No Immunizations Up To Date Tetanus Booster (TDap): Less than 5yrs Date of Pneumonia Vaccine: May 11, 2016 Date of Influenza Vaccine: May 11, 2016 Seasonal Allergies Seasonal Allergies: Yes Surgeries HX Surgeries: Yes Surgeries: Abdominal, Appendectomy, Breast, Cardiac, Coronary Stent, Gallbladder, Hysterectomy, Vascular Surgery Respiratory Hx Respiratory Disorders: Yes Cardiovascular Hx Cardiovascular Disorders: Yes Cardiac Disorders: Coronary Artery Disease, Heart Attack, High Cholesterol, Hypertension Neurological Hx Neurological Disorders: No Neurological Disorders: Headaches /Migraines Reproductive System : No Hx Reproductive Disorders: No Sexually Transmitted Disease: No HIV/AIDS: No Female Reproductive Disorders: Denies Genitourinary Hx Genitourinary Disorders: Yes Genitourinary Disorders: Kidney Infection, Kidney Stones, UTI-Chronic Gastrointestinal Hx Gastrointestinal Disorders: Yes (sbo, colostomy) Gastrointestinal Disorders: Abdominal Hernia, Gastroesophageal Reflux, Gastrointestinal Bleed, Diverticulosis Musculoskeletal Hx Musculoskeletal Disorders: Yes Musculoskeletal Disorders: Osteoporosis, Arthritis Endocrine Hx Endocrine Disorders: Yes Endocrine Disorders: Diabetes, Insulin dep HEENT HX ENT Disorders: Yes HEENT Disorders: Cataract Loss of Vision: Denies Hearing Impairment: Denies Cancer Hx Cancer: Yes Cancer: Colon Psychosocial Hx Psychiatric Problems: Yes Behavioral Health Disorders: Anxiety Integumentary HX Skin/Integumentary Disorder: No Blood Transfusions Hx Blood Disorders: Yes Adverse Reaction to a Blood Tr: No Family Medical History Significant Family History: COPD Family Hx: Abdominal aortic aneurysm G8 BROTHER Arthritis G8 BROTHER Asthma G8 SISTER Cardiovascular disease 19 FATHER Cataracts 19 MOTHER Completed stroke 19 MOTHER Diabetes mellitus 19 FATHER Hypercholesterolemia G8 BROTHER Myocardial infarction 19 FATHER Respiratory disorder 19 FATHER 19 MOTHER No Family History of: AIDS Lester's disease Alcoholism Alzheimer's disease Aphasia Cancer of mouth Colon cancer Congenital disease Congenital heart disease Coronary thrombosis Cystic fibrosis Deafness or hearing loss Dementia Drug abuse Dysphasia Fibrocystic disease of breast Gastroenteritis Glaucoma Headache disorder Hypertension Infertility Kidney disease Neoplasm Osteoporosis Parkinson's disease Prostate cancer Psychosocial problem Seizure disorder Severe allergy Thyroid disease Tuberculosis Visual disorder Constitutional: malaise Gastrointestinal: abdominal pain nausea vomiting Genitourinary: dysuria Physical Exam Vital Signs Vital Sign - Last 12Hours 07/17/16 20:22 Temp 96.8 Pulse 117 Resp 18 B/P 156/104 Pulse Ox 97 O2 Delivery Room Air Capillary Refill : Less Than 3 Seconds General Appearance: No Apparent Distress Obese HEENT: PERRL/EOMI Pharynx Normal Neck: Non Tender Supple Respiratory: Normal Breath Sounds No Accessory Muscle Use No Respiratory Distress Cardiovascular: Regular Rate, Rhythm No Gallop Gastrointestinal: Soft Other (Obese abdomen with Colostomy in place with liquid brown stool in bag;) Rectal: Deferred Back: Normal Inspection No CVA Tenderness No Vertebral Tenderness Extremity: Non Tender No Calf Tenderness No Pedal Edema Neurologic/Psychiatric: Alert Oriented x3 No Motor/Sensory Deficits Normal Mood/Affect uncrater II-XII Norm as Tested Comments Laboratory Tests 07/17/16 20:25: Urine Bacteria FEWH, Urine Leukocyte Esterase 2+H, Urine Protein 1+H, Urine RBC 50-100H, Urine RBC (Auto) 4+H, Urine Specific [place] 1.010L, Urine WBC 5-10H 07/17/16 20:50: Glucose Level 134H, Neutrophils # (Auto) 7.9H, Neutrophils (%) (Auto) 76H, Red Cell Distribution Width 17.4H Laboratory Tests 07/17/16 20:50 CAT scan of the abdomen and pelvis done 03/17/17: Impression: Findings concerning for small bowel obstruction with possible transition point within the right lower quadrant. Heterogeneous masslike density within the lower pelvis. Although the appearance is suggestive of a fibroid uterus, no definite uterus is seen on prior examination from July 2014. Therefore, additional mass lesion should be considered. CT-guided biopsy could be performed as clinically indicated. Tiny nonobstructing left renal calculus. Additional findings as above. Assessment/Plan Assessment and Plan 1. Dysuria with Pyuria-Probable Recurrent UTI, await culture and sensitivity results; Continue IV fluids; Administer 1 dose Vancomycin while cultures are awaited. 2. Abnormal abdominal CT scan associated with Nausea vomiting and abdominal pain and diarrhea--CT scan shows evidence of partial bowel obstruction. Consult with general surgeon Dr. Velasquez has been requested. 3. Metastatic colorectal cancer-has been receiving Avastin and FOLFOX as outpatient. Last dose was more than 3 weeks ago; 4. Diabetes mellitus 5. Obesity Clinical Quality Measures DVT/VTE Risk/Contraindication: Risk Factor Score Per Nursin RFS Level Per Nursing on Admit: 4+=Very High TIP MELLO MD Jul 18, 2016 09:32
--- NOTE | 2016-07-18 10:10 | Diagnostic Imaging Report ---
INDICATION: Anterior chest pain COMPARISON: 09/08/14 FINDINGS: Frontal and lateral views of the chest demonstrate stable right sided Port-A-Cath. Heart is prominent without pulmonary edema. Lungs are clear. There is no pneumothorax. Osseous structures stable. IMPRESSION: No acute cardiopulmonary findings. Dictated by: Dictated on workstation # [id number]
[2016-07-18 12:00] VITALS: BP 127/59
--- NOTE | 2016-07-18 12:42 | Consultation ---
History of Present Illness History of Present Illness Patient Consulted On(cristiana/time) 07/18/16 12:37 Date of Admission History of Present Illness Surgery is asked to consult regarding Partial vs Complete SBO. Pt is a 66 yo female with known metastatic colon cancer. She was actually just in the hospital and discharged 3 days ago with similar symptoms. Her main complaint in the ER was burning pain in her LUQ around her colostomy; "it drops me to my knees". She has also been having continuous burning with urination and bleeding from her vagina. She states she had a PAP smear "a little while back" at [facility] and was told that nothing was seen. She states everytime she goes off ABX, her UTI comes back. Pain has been up to 10 out of 10. She has had some nausea but no vomiting. Today she states she is having multiple liquids stools; "emptying my colostomy a lot". Pt also states that when they did her initial surgery for colon CA, they had to "do some work on bladder and vagina, I was in there a while". According to the Radiologist, CT shows a possible transition point in right pelvis, but also a large 9x9cm mass in pelvis that is new from last CT. Allergies and Home Medications Allergies Coded Allergies: clindamycin (Verified Allergy, Severe, VOMITING/RASH, 10/22/14) Iodinated Contrast Media - IV Dye (Unverified Allergy, Unknown, SOB, ) Penicillins (Unverified Allergy, Unknown, NAUSEA, 07/30/14) adhesive (Unverified Allergy, Unknown, HIVES, 07/30/14) cephalexin (Unverified Allergy, Unknown, ABDOMINAL PAIN, 07/30/14) ciprofloxacin (Unverified Allergy, Unknown, VOMITING, 07/30/14) clarithromycin (Unverified Allergy, Unknown, NAUSEA, 07/30/14) codeine (Unverified Allergy, Unknown, HIVES, VOMITING, HAS TAKEN PERCOCET W/O ISSUE, 06/23/16) erythromycin base (Unverified Allergy, Unknown, NAUSEA, 07/30/14) levofloxacin (Unverified Allergy, Unknown, HIVES, 07/30/14) morphine (Unverified Allergy, Unknown, NAUSEA, 07/30/14) nitrofurantoin (Unverified Allergy, Unknown, VOMITING, 07/30/14) sulfamethoxazole (Unverified Allergy, Unknown, ITCHINESS, 07/30/14) trimethoprim (Unverified Allergy, Unknown, ITCHINESS, 07/30/14) Home Medications Albuterol/Ipratropium 3 Ml Nebu 3 ML INH QID PRN PRN WHEEZING (Reported) Benazepril HCl 20 Mg Tablet 20 MG PO DAILY (Reported) Budesonide/Formoterol Fumarate 10.2 Gm Hfa.aer.ad 2 PUFF IH BID PRN PRN SHORTNESS OF BREATH (Reported) Docusate Sodium 100 Mg Tablet 200 MG PO DAILY (Reported) TAKES 2 (100MG) TABLETS Ezetimibe/Simvastatin 1 Each Tablet 1 TAB PO DAILY (Reported) LAST FILLED #30 03-24-16 Glipizide 5 Mg Tablet 5 MG PO BID (Reported) Hydrochlorothiazide 25 Mg Tablet 25 MG PO DAILY (Reported) Insulin Glargine,Hum.rec.anlog 100 Unit/1 Ml Vial 45 UNITS SQ HS (Reported) Insulin Regular, Human 1,000 Units/10 Ml Soln 35 UNITS SQ AC (Reported) Mag Hydrox/Al Hydrox/Simeth 770 Ml Oral.susp 20 ML PO QID PRN PRN INDIGESTION ( Reported) Montelukast Sodium 10 Mg Tablet 10 MG PO DAILY (Reported) Nitroglycerin 0.4 Mg Tab.subl 0.4 MG SL UD PRN PRN CHEST PAIN (Reported) PLACE 1 TABLET UNDER TONGUE EVERY 5 MINUTES X3 DOSES NEEDED FOR CHEST PAIN Olopatadine HCl 5 Ml Drops 1 DROP OU BID (Reported) LAST FILLED 12-11-15 [place]-3 Fatty Acids 1,000 Mg Capsule 1,000 MG PO DAILY (Reported) Ondansetron 4 Mg Tab.rapdis 4 MG PO Q4H PRN PRN NAUSEA (Reported) Oxycodone HCl/Acetaminophen 1 Each Tablet 1 TAB PO Q4H PRN PRN PAIN (Reported) Past Pfiehjm-Rikzpw-Sygncr Hx Patient Social History Alcohol Use: Denies Use Recreational Drug Use: No Smoking Status: Former Smoker Former Smoker/When Quit: November 13, 1973 Type Used: Cigarettes Recent Foreign Travel: No Contact w/Someone Who Travel: No Recent Infectious Disease Expo: No Recent Hopitalizations: Yes (RECENTLY DISCHARGED THE 07/15/2016) Physical Abuse Screen: No Sexual Abuse: No Immunizations Up To Date Tetanus Booster (TDap): Less than 5yrs PED Vaccines UTD: No Date of Pneumonia Vaccine: May 11, 2016 Date of Influenza Vaccine: May 11, 2016 Seasonal Allergies Seasonal Allergies: Yes Surgeries HX Surgeries: Yes Surgeries: Abdominal, Appendectomy, Breast, Cardiac, Coronary Stent, Gallbladder, Hysterectomy, Vascular Surgery Respiratory Hx Respiratory Disorders: Yes Respiratory Disorders: Sleep Apnea, COPD Cardiovascular Hx Cardiac Disorders: Yes Cardiac Disorders: Coronary Artery Disease, Heart Attack, High Cholesterol, Hypertension Neurological Hx Neurological Disorders: No Neurological Disorders: Headaches /Migraines Reproductive System : No Hx Reproductive Disorders: No Sexually Transmitted Disease: No HIV/AIDS: No Female Reproductive Disorders: Denies [employer] ENGINEERING MANAGER History: Hysterectomy, Menopausal Genitourinary Hx Genitourinary Disorders: Yes Genitourinary Disorders: Kidney Infection, Kidney Stones, UTI-Chronic Gastrointestinal Hx Gastrointestinal Disorders: Yes (sbo, colostomy) Gastrointestinal Disorders: Abdominal Hernia, Gastroesophageal Reflux, Gastrointestinal Bleed, Diverticulosis Musculoskeletal Hx Musculoskeletal Disorders: Yes Musculoskeletal Disorders: Osteoporosis, Arthritis Endocrine Hx Endocrine Disorders: Yes Endocrine Disorders: Diabetes, Insulin dep HEENT HX ENT Disorders: Yes HEENT Disorders: Cataract Loss of Vision: Denies Hearing Impairment: Denies Cancer Hx Cancer: Yes Cancer: Colon Psychosocial Hx Psychiatric Problems: Yes Behavioral Health Disorders: Anxiety Integumentary HX Skin/Integumentary Disorder: No Blood Transfusions Hx Blood Disorders: Yes Adverse Reaction to a Blood Tr: No Family Medical History Significant Family History: COPD Family Medial History: Abdominal aortic aneurysm G8 BROTHER Arthritis G8 BROTHER Asthma G8 SISTER Cardiovascular disease 19 FATHER Cataracts 19 MOTHER Completed stroke 19 MOTHER Diabetes mellitus 19 FATHER Hypercholesterolemia G8 BROTHER Myocardial infarction 19 FATHER Respiratory disorder 19 FATHER 19 MOTHER Review of Systems-General Constitutional: No chills, No diaphoresis, malaise weakness weight gain EENTM: No blurred vision, No ear discharge, No epistaxis, No throat swelling Respiratory: cough dyspnea on exertionNo hemoptysis Cardiovascular: No chest pain, No edema, No palpitations Gastrointestinal: LUQ see HPINo hematemesis Genitourinary: dysuria frequencyNo hematuria Musculoskeletal: back pain joint pain joint swelling muscle stiffness Skin: No change in color, No change in hair/nails Psychiatric/Neurological: AnxietyDenies Headache, Denies Numbness, Denies Paresthesia, Denies Seizure Other Pt denies any other chronic illnesses, no bleeding probelms. No polydypsia, polyphagia or cold intolerance. Physical Exam-General Problems Physical Exam Vital Signs Vital Sign - Last 12Hours 07/17/16 20:22 Temp 96.8 Pulse 117 Resp 18 B/P 156/104 Pulse Ox 97 O2 Delivery Room Air Capillary Refill : Less Than 3 Seconds General Appearance: moderate distress (secondary to pain and anxiousness) obese Eyes: Bilateral Eye EOMI, Bilateral Eye PERRL HEENT: pharynx normalNo scleral icterus (R), No scleral icterus (L) Neck: non-tender supple Respiratory: chest non-tender lungs clear no respiratory distress no accessory muscle use Cardiovascular: regular rate, rhythm no edema no murmur Gastrointestinal: no organomegaly no pulsatile mass abnormal bowel sounds ( decreased bowel sounds) distended tenderness (diffusely) hernia (parastomal and large midline at incision site) Rectal: deferred Back: no CVA tenderness no vertebral tenderness Extremities: no pedal edema no calf tenderness Neurologic/Psychiatric: acquisition associate II-XII nml as tested no motor/sensory deficits alert oriented x 3 other (pt is anxious and slightly depressed because of her Metastatic CA) Skin: normal color warm/dry Lymphatic: no adenopathy (neck, supraclavicular or groin) Data Review Labs Laboratory Tests 07/17/16 20:25: Urine Bacteria FEWH, Urine Bilirubin NEGATIVE, Urine Casts NONE, Urine Clarity SLIGHTLY CLOUDY, Urine Color YELLOW, Urine Crystals NONE, Urine Culture Indicated YES, Urine Glucose (UA) NEGATIVE, Urine Ketones NEGATIVE, Urine Leukocyte Esterase 2+H, Urine Mucus NEGATIVE, Urine Nitrite NEGATIVE, Urine Protein 1+H, Urine RBC 50-100H, Urine RBC (Auto) 4+H, Urine Specific [place] 1.010L, Urine Squamous Epithelial Cells 2-5, Urine Urobilinogen NORMAL, Urine WBC 5-10H, Urine pH 8 07/17/16 20:50: Alanine Aminotransferase (ALT/SGPT) 42, Albumin 3.8, Alkaline Phosphatase 107, Anion Gap 13, Aspartate Amino Transf (AST/SGOT) 32, BUN/Creatinine Ratio 19, Basophils # (Auto) 0.0, Basophils (%) (Auto) 0, Blood Urea Nitrogen 18, Calcium Level 9.3, Carbon Dioxide Level 29, Chloride Level 99, Creatinine 0.97, Eosinophils # (Auto) 0.1, Eosinophils (%) (Auto) 1, Estimat Glomerular Filtration Rate 58, Glucose Level 134H, Hematocrit 38, Hemoglobin 12.1, Lipase 26, Lymphocytes # (Auto) 1.4, Lymphocytes (%) (Auto) 14, Mean Corpuscular Hemoglobin 26, Mean Corpuscular Hemoglobin Concent 32, Mean Corpuscular Volume 81, Mean Platelet Volume 10.3, Monocytes # (Auto) 0.9, Monocytes (%) (Auto) 9, Neutrophils # (Auto) 7.9H, Neutrophils (%) (Auto) 76H, Platelet Count 302, Potassium Level 4.1, Red Blood Count 4.62, Red Cell Distribution Width 17.4H, Sodium Level 141, Total Bilirubin 0.5, Total Protein 7.1, White Blood Count 10.4 Assessment/Plan Assessment/Plan Assessment/Plan Partial vs Complete Bowel Obstruction - Gastrograffin SBFT Metastatic Colon CA - most likely the cause of her obstruction, apparently chemo is not working - new mass seen in Pelvis on CT CAD COPD I had a long discussion with the pt and her 2 daughters; over 45 min. I even showed them the CT films and the area of suspected obstruction as well as the new mass. They asked about cancer spreading once abdomen was opened; I explained that this was an urban legend. The truth is that there can be small cancer that is not seen on CT, but then seen visually when doing surgery. I gave them a couple of options: 1) Gastrograffin SBFT for more information 2) Some type of surgery 3) Do nothing I explained (and they already knew) that she is a poor surgical candidate and could from surgery or even be on a ventilator for prolonged period. I may get into abdomen and have to close right up because the cancer has spread. There is a possibility that surgery goes perfectly and obstruction is released; but if it is due to cancer, it will come back and she may need surgery again. The mass in the abdomen may be able to be removed; or it may be attached to intestine and bladder and not able to remove it. In addition, she should not continue to get UTI's and I am wondering if this is because of first surgery where cancer was probably on bladder wall or the new mass that is right near the bladder. 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 The pt and family agreed to at least do SBFT and get some more information and then talk about next step. In the meantime they will discuss everything we have talked about and see if they have any more questions and come to a final decision. Clinical Quality Measures DVT/VTE Risk/Contraindication: Risk Factor Score Per Nursin RFS Level Per Nursing on Admit: 4+=Very High KACEY UGARTE DO Jul 18, 2016 12:42 COPD I had a long discussion with the pt and her 2 daughters; over 45 min. I even showed them the CT films and the area of suspected obstruction as well as the new mass. They asked about cancer spreading once abdomen was opened; I explained that this was an urban legend. The truth is that there can be small cancer that is not seen on CT, but then seen visually when doing surgery. I gave them a couple of options: 1) Gastrograffin SBFT for more information 2) Some type of surgery 3) Do nothing I explained (and they already knew) that she is a poor surgical candidate and could from surgery or even be on a ventilator for prolonged period. I may get into abdomen and have to close right up because the cancer has spread. There is a possibility that surgery goes perfectly and obstruction is released; but if it is due to cancer, it will come back and she may need surgery again. The mass in the abdomen may be able to be removed; or it may be attached to intestine and bladder and not able to remove it. In addition, she should not continue to get UTI's and I am wondering if this is because of first surgery where cancer was probably on bladder wall or the new mass that is right near the bladder. 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 The pt and family agreed to at least do SBFT and get some more information and then talk about next step. In the meantime they will discuss everything we have talked about and see if they have any more questions and come to a final decision. Clinical Quality Measures DVT/VTE Risk/Contraindication: Risk Factor Score Per Nursin RFS Level Per Nursing on Admit: 4+=Very High KACEY UGARTE DO Jul 18, 2016 12:42
[2016-07-18] MEDS ORDERED: DIATRIZOATE MEGLUM/SODIUM 37% 120 ML (GASTROGRAFIN) PO ONE (15:45)
[2016-07-18] MEDS: HYDROmorphone (DILAUDID) 2 MG/ML VIAL IVP PRN (16:05)
[2016-07-18 16:47] VITALS: BP 131/76
--- NOTE | 2016-07-18 16:48 | Diagnostic Imaging Report ---
INDICATION: Rule out complete bowel obstruction. COMPARISON: Small bowel follow-through dated July 13, [address] of the abdomen and pelvis dated July 17, 2016. TECHNIQUE: Imaging of the abdomen was obtained before and after the administration of enteric contrast. FINDINGS: Surgical material is again identified overlying the upper abdomen, stable from the prior examination. Previously noted enteric catheter has been removed. Rounded density overlying the left pelvis is consistent with ostomy. Dilated loops of small bowel are identified, measuring up to 4.7 cm, appearing more prominent than the prior examination. Contrast is seen within the stomach extending through the small bowel with the small bowel transit time noted at 90 minutes. No significant fold thickening. No free intraperitoneal contrast. No acute osseous abnormality. IMPRESSION: 1. No evidence of complete small bowel obstruction with a small bowel transit time of 90 minutes noted. 2. Increasing dilatation of the small bowel. Findings could relate to enteritis. Low-grade partial obstruction is not totally excluded. No evidence of perforation. 3. Postsurgical changes with a left-sided ostomy noted. Dictated by: Dictated on workstation # [id number]
[2016-07-18 19:29] VITALS: BP 117/68
[2016-07-18] MEDS ORDERED: VANCOMYCIN IV ADD-VANTAGE 1,000 MG in SODIUM CHLORIDE (ADD-VANTAGE) 250 ML IV ONE ×4 (19:30)
[2016-07-18] MEDS ORDERED: SODIUM CHLORIDE (ADD-VANTAGE) 250 ML ONE (19:58)
[2016-07-18] MEDS ORDERED: VANCOMYCIN 1 GM ADD-VANTAGE VIAL IV ONE (19:58)
[2016-07-18] MEDS: ENOXAPARIN 40 MG/0.4 ML (LOVENOX) SYR SC SCH (20:37)
[2016-07-19] VITALS: BP 136/74
[2016-07-19] MEDS: NS IV 1000 ML 1,000 ML IV SCH ×4 (01:22→17:15)
[2016-07-19] MEDS: fentaNYL INJECTION 100 MCG/2 ML AMP IV PRN ×2 (01:36→08:01)
[2016-07-19 06:01] LABS: BASOPHILS % (AUTO) 0 % (0-10); EOSINOPHILS # (AUTO) 0.1 10^3/uL (0.0-0.3); EOSINOPHILS % (AUTO) 2 % (0-10); LYMPHOCYTES # (AUTO) 1.6 X 10^3 (1.0-4.0); LYMPHOCYTES % (AUTO) 24 % (12-44); MEAN CORPUSCULAR HEMOGLOBIN 27 PG (25-34); MEAN CORPUSCULAR HGB CONC 31 G/DL (32-36); MEAN CORPUSCULAR VOLUME 86 FL (80-99); MEAN PLATELET VOLUME 10.3 FL (7.4-10.4); MONOCYTES # (AUTO) 0.6 X 10^3 (0.0-1.0); MONOCYTES % (AUTO) 9 % (0-12); NEUTROPHILS # (AUTO) 4.2 X 10^3 (1.8-7.8); NEUTROPHILS % (AUTO) 65 % (42-75); PLATELET COUNT 180 10^3/uL (130-400); RED CELL DISTRIBUTION WIDTH 17.5 % (10.0-14.5); WHITE BLOOD COUNT 6.5 10^3/uL (4.3-11.0)
[2016-07-19 06:26] LABS: CALCIUM 7.3 MG/DL (8.5-10.1); CREATININE SERUM 0.94 MG/DL (0.60-1.30); MAGNESIUM 2.6 MG/DL (1.8-2.4); POTASSIUM 4.4 MMOL/L (3.6-5.0)
[2016-07-19 08:00] VITALS: BP 128/72
[2016-07-19] MEDS: FAMOTIDINE 20MG/2ML IV (PEPCID) IV SCH ×2 (08:01→20:56)
[2016-07-19] MEDS ORDERED: CATHETER FLUSH 10 ML SYR IV PRN (09:00)
[2016-07-19] MEDS: HYDROmorphone (DILAUDID) 2 MG/ML VIAL IVP PRN ×2 (09:05→21:05)
[2016-07-19] MEDS: DICLOFENAC 1% GEL 100 GM (VOLTAREN) TUBE TOP SCH ×5 (09:06→23:32)
--- NOTE | 2016-07-19 10:39 | Progress Note ---
Subjective Subjective/Events-last exam Pt seen and examined. Still has abdominal pain but more controlled with IV pain meds. Pt is still having function from Ostomy. Denies any increasing abdominal distention. UTI came back as VRE Review of Systems General: No Chills, No Night Sweats HEENT: No Head Aches, No Visual Changes Pulmonary: No Dyspnea, No Cough Cardiovascular: No: Chest Pain, Palpitations Gastrointestinal: : Abdominal Pain: DiarrheaNo: Hematochezia, Nausea Genitourinary: Dysuria FrequencyNo Hematuria Objective Exam Vital Signs Date Time Temp Pulse Resp B/P Pulse Ox O2 Delivery O2 Flow Rate FiO2 07/19/16 08:00 98.2 58 18 128/72 97 Room Air 07/19/16 00:00 97.0 72 20 136/74 93 Room Air 07/18/16 19:38 91 Room Air 07/18/16 19:29 97.2 57 20 117/68 95 Room Air 07/18/16 17:15 98.1 07/18/16 16:47 98.1 56 22 131/76 95 Room Air 07/18/16 12:00 97.8 60 16 127/59 97 Room Air I & O 07/19/16 07:00 Intake Total 2240 ml Output Total 2800 ml Balance -560 ml Capillary Refill : Less Than 3 Seconds General Appearance: No Apparent Distress Obese HEENT: PERRL/EOMI Pharynx Normal Neck: Non Tender Supple Respiratory: Normal Breath Sounds No Accessory Muscle Use No Respiratory Distress Cardiovascular: Regular Rate, Rhythm No Gallop Gastrointestinal: no organomegaly no pulsatile mass abnormal bowel sounds ( decreased bowel sounds) distended tenderness (diffusely) hernia (parastomal and large midline at incision site) Extremity: Non Tender No Calf Tenderness No Pedal Edema Neurologic/Psychiatric: Alert Oriented x3 No Motor/Sensory Deficits Normal Mood/Affect reading efficiency course director II-XII Norm as Tested Results Lab Laboratory Tests 07/19/16 05:25: Basophils # (Auto) 0.0, Basophils (%) (Auto) 0, Eosinophils # (Auto) 0.1, Eosinophils (%) (Auto) 2, Hematocrit 29L, Hemoglobin 9.1#L, Lymphocytes # (Auto ) 1.6, Lymphocytes (%) (Auto) 24, Mean Corpuscular Hemoglobin 27, Mean Corpuscular Hemoglobin Concent 31L, Mean Corpuscular Volume 86, Mean Platelet Volume 10.3, Monocytes # (Auto) 0.6, Monocytes (%) (Auto) 9, Neutrophils # (Auto ) 4.2, Neutrophils (%) (Auto) 65, Platelet Count 180, Red Blood Count 3.40L, Red Cell Distribution Width 17.5H, White Blood Count 6.5 07/19/16 05:41: Anion Gap 7, BUN/Creatinine Ratio 19, Blood Urea Nitrogen 18, Calcium Level 7.3L , Carbon Dioxide Level 24, Chloride Level 108H, Creatinine 0.94, Estimat Glomerular Filtration Rate 60, Glucose Level 123H, Magnesium Level 2.6H, Potassium Level 4.4, Sodium Level 139 Microbiology 07/17/16 Urine Culture - Final, Complete Enterococcus Faecium Assessment/Plan Assessment/Plan Assessment/Plan Partial Bowel Obstruction - Gastrograffin SBFT showed contrast in colon after appx 2 hours Metastatic Colon CA - most likely the cause of her obstruction, apparently chemo is not working - new mass seen in Pelvis on CT CAD COPD After the long discussion with the pt and her 2 daughters yesterday and the new results from SBFT; pt will need to decide what her next step. She still has a couple of options: 1) Some type of surgery 2) Do nothing I explained (and they already knew) that she is a poor surgical candidate and could from surgery or even be on a ventilator for prolonged period. I may get into abdomen and have to close right up because the cancer has spread. There is a possibility that surgery goes perfectly and obstruction is released; but if it is due to cancer, it will come back and she may need surgery again. The mass in the abdomen may be able to be removed; or it may be attached to intestine and bladder and not able to remove it. I still think she may need to see REGISTERED DENTAL HYGIENIST and Urologist; to determine the causes of her chronic UTI. Clinical Quality Measures DVT/VTE Risk/Contraindication: Risk Factor Score Per Nursin RFS Level Per Nursing on Admit: 4+=Very High KACEY UGARTE DO Jul 19, 2016 10:38
[2016-07-19] MEDS ORDERED: NITROGLYCERIN SUBLINGUAL 0.4 MG TAB (NITROSTAT) SL PRN (11:00)
[2016-07-19] MEDS ORDERED: ONDANSETRON 4 MG (ZOFRAN) ORAL DISSOLVE TAB PO PRN (11:00)
[2016-07-19] MEDS ORDERED: RT-ALBUTEROL/IPRATROPIUM 3 ML (DUONEB) VIAL INH PRN (11:00)
[2016-07-19] MEDS: LINEZOLID 600MG/300ML IVPB (PRE-MIX) IV SCH ×2 (11:07→20:56)
[2016-07-19] MEDS: glipiZIDE 5 MG (GLUCOTROL) TAB PO SCH (16:32)
[2016-07-19 16:34] VITALS: BP 138/63
[2016-07-19] MEDS ORDERED: fentaNYL PATCH 75 MCG (DURAGESIC) TD SCH ×2 (17:00→17:30)
--- NOTE | 2016-07-19 17:15 | Oncology Progress Note ---
Subjective Subjective/Events-last exam No more nausea and vomiting today Chronic shoulder and upper back pain. Urine grew VRE, started Zyvox IV today Data Review Labs Laboratory Tests 07/19/16 05:25 07/19/16 05:41 Laboratory Tests 07/17/16 20:25: Urine Bacteria FEWH, Urine Leukocyte Esterase 2+H, Urine Protein 1+H, Urine RBC 50-100H, Urine RBC (Auto) 4+H, Urine Specific [place] 1.010L, Urine WBC 5-10H 07/17/16 20:50: Glucose Level 134H, Neutrophils # (Auto) 7.9H, Neutrophils (%) (Auto) 76H, Red Cell Distribution Width 17.4H 07/19/16 05:25: Red Cell Distribution Width 17.5H, Hematocrit 29L, Hemoglobin 9.1#L, Mean Corpuscular Hemoglobin Concent 31L, Red Blood Count 3.40L 07/19/16 05:41: Glucose Level 123H, Calcium Level 7.3L, Chloride Level 108H, Magnesium Level 2.6H Physical Exam Vital Signs Vital Sign - Last 12Hours 07/17/16 20:22 Temp 96.8 Pulse 117 Resp 18 B/P 156/104 Pulse Ox 97 O2 Delivery Room Air Capillary Refill : Less Than 3 Seconds General Appearance: No Apparent Distress Obese HEENT: PERRL/EOMI Neck: Supple Respiratory: No Accessory Muscle Use No Respiratory Distress Cardiovascular: Regular Rate, Rhythm Gastrointestinal: Soft Distended Extremity: Non Tender No Calf Tenderness Pedal Edema Neurologic/Psychiatric: Alert Impression & Plan Impression & Plan 1. VRE UTI with Dysuria with Pyuria. Started Zyvox today for 7 days. Isolation. 2. Abnormal abdominal CT scan associated with Nausea vomiting and abdominal pain and diarrhea--CT scan shows evidence of partial bowel obstruction. Conservative management for now. Bowel rest. IVF but reduce the rate to 100ml/ hr due to the ankle edema. Appreciate general surgeon Dr. Velasquez. 3. Metastatic colorectal cancer-has been receiving Avastin and FOLFOX as outpatient. Hold off chemo for now. 4. Diabetes mellitus 5. Obesity 6. Fentanyl patch for pain control Clinical Quality Measures DVT/VTE Risk/Contraindication: Risk Factor Score Per Nursin RFS Level Per Nursing on Admit: 4+=Very High SEBASTIEN CHAPARRO MD Jul 19, 2016 17:15
[2016-07-19] MEDS: oxyCODONE/APAP 5/325MG (PERCOCET 5) TABLET PO PRN (18:54)
[2016-07-19] MEDS: ENOXAPARIN 40 MG/0.4 ML (LOVENOX) SYR SC SCH (20:54)
[2016-07-19] MEDS: inSUlin DETERMIR 1 UNIT/0.01 ML (LEVEMIR) CHARGE PER UNIT SQ SCH (20:59)
[2016-07-19] MEDS ORDERED: INSULIN GLARGINE HUM REC ANLOG 45 UNIT SQ SCH (21:00)
[2016-07-20] VITALS: BP 123/60
[2016-07-20] MEDS: NS IV 1000 ML 1,000 ML IV SCH ×3 (00:09→22:27)
[2016-07-20] MEDS: HYDROmorphone (DILAUDID) 2 MG/ML VIAL IVP PRN (02:03)
[2016-07-20] MEDS: ONDANSETRON 4 MG/2 ML (SDV) Z0FRAN IV PRN ×2 (02:16→10:59)
[2016-07-20] MEDS: fentaNYL INJECTION 100 MCG/2 ML AMP IV PRN (04:58)
[2016-07-20] MEDS: glipiZIDE 5 MG (GLUCOTROL) TAB PO SCH ×2 (05:43→16:53)
[2016-07-20 05:50] LABS: BASOPHILS % (AUTO) 0 % (0-10); EOSINOPHILS # (AUTO) 0.1 10^3/uL (0.0-0.3); EOSINOPHILS % (AUTO) 1 % (0-10); LYMPHOCYTES # (AUTO) 1.9 X 10^3 (1.0-4.0); LYMPHOCYTES % (AUTO) 30 % (12-44); MEAN CORPUSCULAR HEMOGLOBIN 26 PG (25-34); MEAN CORPUSCULAR HGB CONC 31 G/DL (32-36); MEAN CORPUSCULAR VOLUME 85 FL (80-99); MONOCYTES # (AUTO) 0.6 X 10^3 (0.0-1.0); MONOCYTES % (AUTO) 10 % (0-12); NEUTROPHILS # (AUTO) 3.7 X 10^3 (1.8-7.8); NEUTROPHILS % (AUTO) 59 % (42-75); PLATELET COUNT 181 10^3/uL (130-400); RED BLOOD COUNT 3.41 10^6/uL (4.35-5.85); RED CELL DISTRIBUTION WIDTH 17.1 % (10.0-14.5); WHITE BLOOD COUNT 6.3 10^3/uL (4.3-11.0)
[2016-07-20 06:12] LABS: ANION GAP 6 MMOL/L (5-14); BLOOD UREA NITROGEN 10 MG/DL (7-18); BUN/CREATININE RATIO 12; CALCIUM 7.6 MG/DL (8.5-10.1); CARBON DIOXIDE 23 MMOL/L (21-32); CHLORIDE 108 MMOL/L (98-107); CREATININE SERUM 0.84 MG/DL (0.60-1.30); GFR ESTIMATED > 60; GLUCOSE 98 MG/DL (70-105); SODIUM 137 MMOL/L (135-145)
[2016-07-20 08:00] VITALS: BP 143/81
[2016-07-20] MEDS: FAMOTIDINE 20MG/2ML IV (PEPCID) IV SCH ×2 (08:27→20:49)
[2016-07-20] MEDS: BENAZEPRIL 20 MG (LOTENSIN) TAB PO SCH (08:27)
[2016-07-20] MEDS: LINEZOLID 600MG/300ML IVPB (PRE-MIX) IV SCH (08:27)
[2016-07-20] MEDS: MONTELUKAST 10 MG (SINGULAIR) TAB PO SCH (08:28)
[2016-07-20] MEDS: HYDROCHLOROTHIAZIDE 25 MG (HCTZ) TAB PO SCH (08:28)
[2016-07-20] MEDS: DICLOFENAC 1% GEL 100 GM (VOLTAREN) TUBE TOP SCH ×4 (08:28→20:50)
[2016-07-20] MEDS: oxyCODONE/APAP 5/325MG (PERCOCET 5) TABLET PO PRN ×2 (08:28→22:53)
[2016-07-20] MEDS ORDERED: VYTORIN PO SCH (09:00)
[2016-07-20 11:15] VITALS: BP 133/80
--- NOTE | 2016-07-20 13:30 | Progress Note ---
Subjective Subjective/Events-last exam Pt doing ok, but states when she drank the apple ensure clear liquid today her face got numb. Still has mild abdominal pain. +Ostomy function Pt has decided she doesn't want any surgery, and spoke with her Oncologist who agreed surgery was not an option. Review of Systems General: No Chills, No Night Sweats Pulmonary: No Cough Cardiovascular: No: Chest Pain Gastrointestinal: : Abdominal PainNo: Vomiting Neurological: : Numbness (in her face, denies any chest pain.) Objective Exam Vital Signs Date Time Temp Pulse Resp B/P Pulse Ox O2 Delivery O2 Flow Rate FiO2 07/20/16 11:15 53 18 133/80 97 Room Air 07/20/16 08:00 98.0 58 16 143/81 97 Room Air 07/20/16 07:16 Room Air 07/20/16 00:00 96.6 94 18 123/60 95 Room Air 07/19/16 16:34 96.3 61 16 138/63 96 Room Air I & O 07/20/16 07:00 Intake Total 3210 ml Output Total 850 ml Balance 2360 ml Capillary Refill : Less Than 3 Seconds General Appearance: No Apparent Distress Obese HEENT: PERRL/EOMI Neck: Supple Respiratory: No Accessory Muscle Use No Respiratory Distress Cardiovascular: Regular Rate, Rhythm Gastrointestinal: no organomegaly no pulsatile mass abnormal bowel sounds ( decreased bowel sounds) distended tenderness (diffusely) hernia (parastomal and large midline at incision site) Extremity: Non Tender No Calf Tenderness Pedal Edema Neurologic/Psychiatric: Alert No Motor/Sensory Deficits banking paralegal II-XII Norm as Tested Other (pt does not have facial droop, no slurred speech. Unsure what the numbness is caused by.) Results Lab Laboratory Tests 07/20/16 05:43: Anion Gap 6, BUN/Creatinine Ratio 12, Basophils # (Auto) 0.0, Basophils (%) ( Auto) 0, Blood Urea Nitrogen 10, Calcium Level 7.6L, Carbon Dioxide Level 23, Chloride Level 108H, Creatinine 0.84, Eosinophils # (Auto) 0.1, Eosinophils (%) (Auto) 1, Estimat Glomerular Filtration Rate > 60, Glucose Level 98, Hematocrit 29L, Hemoglobin 9.0L, Lymphocytes # (Auto) 1.9, Lymphocytes (%) (Auto) 30, Mean Corpuscular Hemoglobin 26, Mean Corpuscular Hemoglobin Concent 31L, Mean Corpuscular Volume 85, Mean Platelet Volume 10.0, Monocytes # (Auto) 0.6, Monocytes (%) (Auto) 10, Neutrophils # (Auto) 3.7, Neutrophils (%) (Auto) 59, Platelet Count 181, Potassium Level 4.0, Red Blood Count 3.41L, Red Cell Distribution Width 17.1H, Sodium Level 137, White Blood Count 6.3 07/20/16 11:34: Glucometer 162H Microbiology 07/17/16 Urine Culture - Final, Complete Enterococcus Faecium Assessment/Plan Assessment/Plan Assessment/Plan Partial Bowel Obstruction - Gastrograffin SBFT showed contrast in colon after appx 2 hours Metastatic Colon CA - most likely the cause of her obstruction, apparently chemo is not working - new mass seen in Pelvis on CT CAD COPD Pt has decided she does not want surgery and therefore I think her next step is social work faculty member consult and possibly hospice consult. I think the very least she will need is home pain meds; so she can avoid coming to hospital again. I still think she may need to see STUDENT FINANCE ADVISOR and Urologist; to determine the causes of her chronic UTI. Clinical Quality Measures DVT/VTE Risk/Contraindication: Risk Factor Score Per Nursin RFS Level Per Nursing on Admit: 4+=Very High KACEY UGARTE DO Jul 20, 2016 13:30 KACEY UGARTE DO Jul 20, 2016 13:30
[2016-07-20 16:00] VITALS: BP 147/70
[2016-07-20] MEDS ORDERED: LINE600T5 PO (17:26)
--- NOTE | 2016-07-20 17:34 | Oncology Progress Note ---
Subjective Subjective/Events-last exam Feeling better. No more vomiting. Will change her IV Zyvox to PO today. Pain under good control with Fentanyl patch Data Review Labs Laboratory Tests 07/20/16 05:43 Laboratory Tests 07/17/16 20:25: Urine Bacteria FEWH, Urine Leukocyte Esterase 2+H, Urine Protein 1+H, Urine RBC 50-100H, Urine RBC (Auto) 4+H, Urine Specific [place] 1.010L, Urine WBC 5-10H 07/17/16 20:50: Glucose Level 134H, Neutrophils # (Auto) 7.9H, Neutrophils (%) (Auto) 76H, Red Cell Distribution Width 17.4H 07/19/16 05:25: Red Cell Distribution Width 17.5H, Hematocrit 29L, Hemoglobin 9.1#L, Mean Corpuscular Hemoglobin Concent 31L, Red Blood Count 3.40L 07/19/16 05:41: Glucose Level 123H, Calcium Level 7.3L, Chloride Level 108H, Magnesium Level 2.6H 07/20/16 05:43: Calcium Level 7.6L, Chloride Level 108H, Hematocrit 29L, Hemoglobin 9.0L, Mean Corpuscular Hemoglobin Concent 31L, Red Blood Count 3.41L, Red Cell Distribution Width 17.1H 07/20/16 11:34: Glucometer 162H Physical Exam Vital Signs Vital Sign - Last 12Hours 07/17/16 20:22 Temp 96.8 Pulse 117 Resp 18 B/P 156/104 Pulse Ox 97 O2 Delivery Room Air Capillary Refill : Less Than 3 Seconds General Appearance: No Apparent Distress Obese HEENT: PERRL/EOMI Neck: Non Tender Respiratory: No Accessory Muscle Use No Respiratory Distress Gastrointestinal: Soft Distended Neurologic/Psychiatric: Alert Oriented x3 Impression & Plan Impression & Plan 1. VRE UTI with Dysuria with Pyuria. Change Zyvox from IV to PO today for 10 days. If no trouble, home tomorrow with home health. 2. Abnormal abdominal CT scan associated with Nausea vomiting and abdominal pain and diarrhea--CT scan shows evidence of partial bowel obstruction. Conservative management for now. Bowel rest. IVF but reduce the rate to 100ml/ hr due to the ankle edema. Appreciate general surgeon Dr. Velasquez. 3. Metastatic colorectal cancer-has been receiving Avastin and FOLFOX as outpatient. Hold off chemo for now. Not ready for hospice. Will see me at cancer center 07/27/16 4. Diabetes mellitus. hold off long acting insulin. Stay on sliding scales. 5. Obesity 6. Fentanyl patch for pain control 7. Anemia. Watch for now Clinical Quality Measures DVT/VTE Risk/Contraindication: Risk Factor Score Per Nursin RFS Level Per Nursing on Admit: 4+=Very High SEBASTIEN CHAPARRO MD Jul 20, 2016 17:33
[2016-07-20] MEDS ORDERED: FENT1PAT60 TD (17:35)
[2016-07-20] MEDS: ENOXAPARIN 40 MG/0.4 ML (LOVENOX) SYR SC SCH (19:41)
[2016-07-20] MEDS: LINEZOLID (ZYVOX) 600 MG TAB PO SCH (20:49)
[2016-07-20] MEDS: inSUlin DETERMIR 1 UNIT/0.01 ML (LEVEMIR) CHARGE PER UNIT SQ SCH (20:50)
[2016-07-20] MEDS ORDERED: SIMvastatin 40 MG (ZOCOR) TAB PO SCH (21:00)
[2016-07-20] MEDS ORDERED: eZETimibe 10 MG (ZETIA) TABLET PO SCH (21:00)
[2016-07-21] MEDS: fentaNYL INJECTION 100 MCG/2 ML AMP IV PRN (01:40)
[2016-07-21 05:17] LABS: BASOPHILS % (AUTO) 0 % (0-10); EOSINOPHILS # (AUTO) 0.1 10^3/uL (0.0-0.3); EOSINOPHILS % (AUTO) 2 % (0-10); LYMPHOCYTES # (AUTO) 1.5 X 10^3 (1.0-4.0); LYMPHOCYTES % (AUTO) 26 % (12-44); MEAN CORPUSCULAR HEMOGLOBIN 26 PG (25-34); MEAN CORPUSCULAR HGB CONC 31 G/DL (32-36); MEAN CORPUSCULAR VOLUME 84 FL (80-99); MEAN PLATELET VOLUME 10.6 FL (7.4-10.4); MONOCYTES # (AUTO) 0.5 X 10^3 (0.0-1.0); MONOCYTES % (AUTO) 8 % (0-12); NEUTROPHILS # (AUTO) 3.7 X 10^3 (1.8-7.8); NEUTROPHILS % (AUTO) 65 % (42-75); PLATELET COUNT 189 10^3/uL (130-400); RED BLOOD COUNT 3.46 10^6/uL (4.35-5.85); RED CELL DISTRIBUTION WIDTH 17.1 % (10.0-14.5); WHITE BLOOD COUNT 5.7 10^3/uL (4.3-11.0)
[2016-07-21 05:34] LABS: ANION GAP 7 MMOL/L (5-14); BLOOD UREA NITROGEN 6 MG/DL (7-18); BUN/CREATININE RATIO 8; CALCIUM 7.6 MG/DL (8.5-10.1); CARBON DIOXIDE 21 MMOL/L (21-32); CHLORIDE 108 MMOL/L (98-107); GFR ESTIMATED > 60; GLUCOSE 122 MG/DL (70-105); POTASSIUM 4.1 MMOL/L (3.6-5.0); SODIUM 136 MMOL/L (135-145)
[2016-07-21] MEDS: glipiZIDE 5 MG (GLUCOTROL) TAB PO SCH ×2 (06:23→10:06)
[2016-07-21 08:00] VITALS: BP 105/55
[2016-07-21] MEDS: oxyCODONE/APAP 5/325MG (PERCOCET 5) TABLET PO PRN (10:06)
[2016-07-21] MEDS: HYDROCHLOROTHIAZIDE 25 MG (HCTZ) TAB PO SCH (10:06)
[2016-07-21] MEDS: FAMOTIDINE 20MG/2ML IV (PEPCID) IV SCH (10:06)
[2016-07-21] MEDS: MONTELUKAST 10 MG (SINGULAIR) TAB PO SCH (10:06)
[2016-07-21] MEDS: LINEZOLID (ZYVOX) 600 MG TAB PO SCH (10:07)
[2016-07-21] MEDS: BENAZEPRIL 20 MG (LOTENSIN) TAB PO SCH (10:10)
[2016-07-21] MEDS: DICLOFENAC 1% GEL 100 GM (VOLTAREN) TUBE TOP SCH (10:10)
--- NOTE | 2016-07-21 13:59 | Oncology Discharge Summary ---
Diagnosis/Chief Complaint Date of Admission Jul 17, 2016 at 23:14 Date of Discharge Discharge Date: Jul 21, 2016 Admission Diagnosis Admission Diagnosis 1. Dysuria with Pyuria-Probable Recurrent UTI, await culture and sensitivity results; Continue IV fluids; Administer 1 dose Vancomycin while cultures are awaited. 2. Abnormal abdominal CT scan associated with Nausea vomiting and abdominal pain and diarrhea--CT scan shows evidence of partial bowel obstruction. Consult with general surgeon Dr. Velasquez has been requested. 3. Metastatic colorectal cancer-has been receiving Avastin and FOLFOX as outpatient. Last dose was more than 3 weeks ago; 4. Diabetes mellitus 5. Obesity Discharge Diagnosis 1. Vanco-resistant enterococcus UTI with Dysuria with Pyuria. 2. Abnormal abdominal CT scan associated with Nausea vomiting and abdominal pain and diarrhea--CT scan shows evidence of partial bowel obstruction. 3. Metastatic colorectal cancer-has been receiving Avastin and FOLFOX as outpatient. 4. Diabetes mellitus. 5. Obesity 6. Pain control issue: Fentanyl patch for pain control 7. Anemia. 8. Dehydration. Reason Hospital Visit Ms. Ortiz is a 66 year old white female readmitted on Jul 17, 2016 for pain over her shoulder, abdomen and UTI with dysuria/pyuria. She was initially treated with Vancomycin and then the urine culture showed VRE. We changed Vanco to Zyvox and she got better. She was also treated with IVF and bowel rest for partial bowel obstruction and Fentanyl patch for pain control. She felt a lot better after 2 days treatment without any more nausea and she is able to keep the medicine and liquid diet. We changed her IV Zyvox to PO 600mg bid and discharged her home with home health. Discharge condition: Stable and much improved F/u Dr Pleitez 07/27/16 at cancer center. New meds: Zyvox 600mg bid x 10 days change insulin to sliding scale while on liquid diet. Fentanyl patch 100mcg q72 x 10 patches. Discharge Summary Discharge Instructions to patient/family Please see electonic discharge instructions given to patient. Discharge Medications Reviewed and agree with Discharge Medication list on patient's Discharge Instruction sheet Clinical Quality Measures DVT/VTE Risk/Contraindication: Risk Factor Score Per Nursin RFS Level Per Nursing on Admit: 4+=Very High SEBASTIEN PLEITEZ MD Jul 21, 2016 13:59
[2016-07-21 16:00] VITALS: BP 135/76
[2016-07-22] MEDS ORDERED: FENTANYL PATCH REMOVAL TP SCH (16:59)
== END 2016-07-21 12:00 | disposition home health service (06) | DRG 389 ==
LOC: EDUNIT# 19:12 → ER 19:15 → 4TH 23:14
PROVIDERS: ADMIT Surgery; ATTEND Surgery
DX: K56.69 Other intestinal obstruction (principal); C79.89 Secondary malignant neoplasm of other specified sites; N39.0 Urinary tract infection, site not specified; Z68.41 Body mass index [BMI] 40.0-44.9, adult; E86.0 Dehydration; K43.5 Parastomal hernia without obstruction or gangrene; B95.2 Enterococcus as the cause of diseases classified elsewhere; J44.9 Chronic obstructive pulmonary disease, unspecified; D64.9 Anemia, unspecified; G47.30 Sleep apnea, unspecified; I25.10 Atherosclerotic heart disease of native coronary artery without angina pectoris; I25.2 Old myocardial infarction; G89.29 Other chronic pain; I10 Essential (primary) hypertension; E11.9 Type 2 diabetes mellitus without complications; F41.9 Anxiety disorder, unspecified; E66.9 Obesity, unspecified; E78.00 Pure hypercholesterolemia, unspecified; K21.9 Gastro-esophageal reflux disease without esophagitis; K57.90 Diverticulosis of intestine, part unspecified, without perforation or abscess without bleeding; Z85.038 Personal history of other malignant neoplasm of large intestine; Z95.5 Presence of coronary angioplasty implant and graft; Z79.4 Long term (current) use of insulin; Z87.891 Personal history of nicotine dependence; Z92.21 Personal history of antineoplastic chemotherapy; Z93.3 Colostomy status
CPT/HCPCS: 36415; 71020; 74176; 74250; 80048; 80053; 81000; 82378; 82962; 83690; 83735; 85025; 87077; 87088; 87186; 94760; 96374; 96375

== ENCOUNTER 2016-07-27 09:42 | Outpatient (RCR) | payer MEDICARE, MEDICAID ==
--- OUTSIDE RECORDS SUMMARY | 2016-05-03 10:40 | XMS REPORT | Continuity of Care Document ---
Author Author [facility] Organization [facility] Address Unknown Phone Unavailable Care Team Providers Care Button Riveter Name Role Phone NO, LOCAL PHYSICIAN PCP Unavailable Insurance Providers Payer Name Policy Number [facility]scriber [id number] Tanna Blanco 18 Self / Same As Patient Advance Directives Directive Response Recorded Date/Time Advance Directives Yes 10/22/14 2:41pm Health Care Power of Psychologist Educational Y Kira ric and Bri larios 10/22/14 2:41pm Organ Donor No 10/22/14 2:41pm Resuscitation Status Full Code 10/22/14 2:41pm Problems Medical Problems Problem Onset Date Status Urinary tract infection Unknown Active Ileus Unknown Active Colon cancer Unknown Active Nausea and vomiting Unknown Active Urinary tract infection Unknown Active Medications Medication Dose Route Sig Days/Qty Instructions Order Date Discontinued Date Status Albuterol Sulfate 2 Puff IH EVERY 4HRS PRN SHORTNESS OF BREATH Active Benazepril Hcl 20 Mg PO DAILY 04-25-14 #30 LAST FILLED 07/31/1410/22 Discontinued Cyclobenzaprine HCl (Flexeril) 10 Mg PO THREE TIMES A DAY PRN MUSCLE SPASMS 07/31/14 Active Fenofibrate 145 Mg PO DAILY 07/31/14 10/22/14 Discontinued Insulin Glargine,Hum.rec.anlog 30 Unit SQ BEDTIME 07/31/14 09/09/14 Discontinued Montelukast Sodium 10 Mg PO DAILY 03-26-14 #30 LAST FILLED 07/31/14 Discontinued [place]-3 Fatty Acids 2,000 Mg PO DAILY 07/31/14 Active Ezetimibe/Simvastatin 1 Tab PO BEDTIME 07/31/14 09/05/14 Discontinued Hydrochlorothiazide 25 Mg PO DAILY 07/31/14 Active Insulin Lispro 30 Unit SQ THREE TIMES A DAY BEFORE MEALS 07/31/14 Discontinued Loratadine 10 Mg PO DAILY 07/31/14 Active Alprazolam 0.5 Mg PO THREE TIMES A DAY PRN ANXIETY PRN ANXIETY 09/05/14 Discontinued Capsaicin/Menthol 1 Appful TP DAILY PRN JOINT PAIN 07/31/14 Discontinued Docusate Sodium 200 Mg PO TWICE A DAY TAKES 2 (100MG) TABLETS 07/31/14 Active Furosemide 40 Mg PO DAILY 07/31/14 10/22/14 Discontinued Al Hydrox/Mg Hydrox/Simeth 1 Each PO FOUR TIMES DAILY 07/31/1410/22 Discontinued Albuterol/Ipratropium 3 Ml INH FOUR TIMES DAILY PRN WHEEZING Active Metoclopramide Hcl 10 Mg PO FOUR TIMES DAILY PRN NAUSEA/VOMITING #90 LAST FILLED 07/31/14 10/22/14 Discontinued Nitroglycerin 0.4 Mg SL DIRECTED PRN CHEST PAIN CHEST PAIN Active Olopatadine Hcl 1 Drop OU THREE TIMES A DAY PRN EYE REDNESS 07/31/14 Active Ondansetron HCl 8 Mg PO EVERY 8HRS PRN NAUSEA/VOMITING PRN N/V 10/22/14 Discontinued Oxycodone Hcl 10 Mg PO EVERY 8HRS PRN PAIN 07/31/14 10/22/14 Discontinued Budesonide/Formoterol Fumarate 1 Puff IH TWICE A DAY 07/31/14 Active Alprazolam 0.5 Mg PO THREE TIMES A DAY PRN ANXIETY 04-23-14 #20 LAST FILLED 09/05/14 10/22/14 Discontinued Insulin Human Regular 0 Unit SC BEFORE MEALS AND AT BEDTIME 30 Days 08/2510/22/14 Discontinued Fentanyl 1 Patch TD Q72H 10 Qty 09/09/14 10/22/14 Discontinued Cephalexin Monohydrate (Keflex) 1 Each PO THREE TIMES A DAY 20 Qty 10/22/14 Discontinued Ondansetron 8 Mg PO EVERY 8HRS PRN NAUSEA/VOMITING 20 Qty 09/21/14 Discontinued Benazepril Hcl 20 Mg PO DAILY 10/22/14 Active Ezetimibe/Simvastatin 1 Tab PO DAILY 10/22/14 Active Fentanyl 100 Mcg TD EVERY 72 HOURS 10/22/14 Active Furosemide (Lasix) 40 Mg PO DAILY 10/22/14 Active Insulin Aspart 30 Units SC THREE TIMES A DAY 10/22/14 Active Insulin Glargine 30 Units SC BEDTIME 10/22/14 Active Metoclopramide HCl (Reglan) 5 Mg PO FOUR TIMES DAILY PRN STOMACH UPSET 10/22/14 Active Montelukast Sodium 10 Mg PO DAILY 10/22/14 Active Ondansetron 8 Mg PO EVERY 8HRS PRN NAUSEA/VOMITING 10/22/14 Active Omeprazole 40 Mg PO DAILY 10/22/14 Active Zolpidem Tartrate 5 Mg PO BEDTIME PRN INSOMNIA 10/22/14 Active Oxycodone Hcl/Acetaminophen 1 Tab PO EVERY 8HRS PRN SEVERE PAIN 10/22 Active Social History Social History Problem Response Recorded Date/Time Alcohol Use Past History 10/22/2014 1:06pm Recreational Drug Use No 10/22/2014 1:06pm Recent Foreign Travel No 10/22/2014 1:08pm Recent Infectious Disease Exposure No 10/22/2014 1:06pm Smoking Status Never a Smoker 10/22/2014 2:41pm Query Response Start Date Stop Date Smoking Status Never a Smoker Hospital Discharge Instructions No hospital discharge instructions. Plan of Care Discharge Date 10/25/14 12:50pm Disposition 30 STILL A PATIENT Instructions/Education Provided DIABETES Prescriptions See Medications Section Referrals (Unspecified) Reason(s) for Referral: KEEP APPOINTMENT FOR CHEMO 09[facility]10/[facility] SHANKAR CHAPARRO,SEBASTIEN ROMERO (Unspecified) 10/29/14 Address: [address] [place] [address] Reason(s) for Referral: 13:00 Additional Instructions/Education REG DIET Functional Status Query Response Date Recorded Comprehension Ability Understands Concepts October 25, 2014 9:00am Allergies, Adverse Reactions, Alerts Allergen Type Severity Reaction Status Last Updated Iodinated Contrast Media - IV Dye Allergy Unknown SOB Active 07/30/14 Penicillins ([id number]) Allergy Unknown NAUSEA Active 07/30/14 Morphine Allergy Unknown NAUSEA Active 07/30/14 Codeine Allergy Unknown HIVES, VOMITING Active 07/30/14 Cephalexin Allergy Unknown ABDOMINAL PAIN Active 07/30/14 Erythromycin base Allergy Unknown NAUSEA Active 07/30/14 Clindamycin Allergy Severe VOMITING/RASH Active 10/22/14 sulfamethoxazole ([id number]) Allergy Unknown ITCHINESS Active 07/30/14 nitrofurantoin ([id number]) Allergy Unknown VOMITING Active 07/30/14 Trimethoprim Allergy Unknown ITCHINESS Active 07/30/14 ciprofloxacin ([id number]) Allergy Unknown VOMITING Active 07/30/14 adhesive ([id number]) Allergy Unknown HIVES Active 07/30/14 Clarithromycin Allergy Unknown NAUSEA Active 07/30/14 Levofloxacin Allergy Unknown HIVES Active 07/30/14 Immunizations Name Given Type Date of Pneumonia Vaccine 04/10/13 Historical Date of Influenza Vaccine 04/10/14 Historical Hepatitis A No Historical Hepatitis B No Historical Tetanus Booster (TDap) Less than 5yrs Historical Vital Signs Acute Vital Signs Vital Response Date/Time Temperature (Fahrenheit) 99.1 degrees F (97.6 - 99.5) Temperature (Calculated Celsius) 37.27117 degrees C (36.4 - 37.5) Temperature Source Temporal Pulse Rate (adult) 91 bpm (60 - 90) Respiratory Rate 20 bpm (12 - 24) O2 Sat by Pulse Oximetry 96 % (88 - 100) Blood Pressure 116/70 mm Hg Pain Pain Intensity 0 Height (Feet) 5 feet Height (Inches) 3.00 inches Height (Calculated Centimeters) 160.799044 cm Weight (Pounds) 251 pounds Weight (Ounces) 4.0 oz Weight (Calculated Grams) 253795.084 gm Weight (Calculated Kilograms) 113.320102 kilograms Calculated BMI 44.46 Results Laboratory Results Test Name Result Units Flags Reference Collection Date/Time Result Date/ Time Comments White Blood Count 8.4 10^3/uL 4.3-11.0 10/22/2014 8:57am 10/22/2014 9: 00am Red Blood Count 4.37 10^6/uL 4.35-5.85 10/22/2014 8:57am 10/22/2014 9: 00am Hemoglobin 10.5 G/DL L 11.5-16.0 10/22/2014 8:57am 10/22/2014 9:00am Hematocrit 34 % L 35-52 10/22/2014 8:57am 10/22/2014 9:00am Mean Corpuscular Volume 77 FL L 80-99 10/22/2014 8:57am 10/22/2014 9: 00am Mean Corpuscular Hemoglobin 24 PG L 25-34 10/22/2014 8:57am 10/22/2014 9: 00am Mean Corpuscular Hemoglobin Concent 31 G/DL L 32-36 10/22/2014 8:57am 9:00am Red Cell Distribution Width 21.2 % H 10.0-14.5 10/22/2014 8:57am 2014 9:00am Platelet Count 346 10^3/uL 130-400 10/22/2014 8:57am 10/22/2014 9:00am Mean Platelet Volume 9.4 FL 7.4-10.4 10/22/2014 8:57am 10/22/2014 9: 00am Neutrophils (%) (Auto) 58 % 42-75 10/22/2014 8:57am 10/22/2014 9:00am Lymphocytes (%) (Auto) 34 % 12-44 10/22/2014 8:57am 10/22/2014 9:00am Monocytes (%) (Auto) 8 % 0-12 10/22/2014 8:57am 10/22/2014 9:00am Eosinophils (%) (Auto) 1 % 0-10 10/22/2014 8:57am 10/22/2014 9:00am Basophils (%) (Auto) 0 % 0-10 10/22/2014 8:57am 10/22/2014 9:00am Neutrophils # (Auto) 4.8 X 10^3 1.8-7.8 10/22/2014 8:57am 10/22/2014 9: 00am Lymphocytes # (Auto) 2.8 X 10^3 1.0-4.0 10/22/2014 8:57am 10/22/2014 9: 00am Monocytes # (Auto) 0.7 X 10^3 0.0-1.0 10/22/2014 8:57am 10/22/2014 9: 00am Eosinophils # (Auto) 0.1 10^3/uL 0.0-0.3 10/22/2014 8:57am 10/22/2014 9 :00am Basophils # (Auto) 0.0 10^3/uL 0.0-0.1 10/22/2014 8:57am 10/22/2014 9: 00am Urine Color MADIE * 09/03/2014 12:23pm 09/03/2014 12:37pm Urine Clarity VERY CLOUDY * 09/03/2014 12:pm 09/03/2014 12:37pm Urine pH 6 5-9 09/03/2014 12:23pm 09/03/2014 12:37pm Urine Specific [place] 1.010 * 1.016-1.022 09/03/2014 12:23pm 2014 12:37pm Urine Protein 3+ * NEGATIVE 09/03/2014 12:pm 09/03/2014 12:37pm Urine Glucose (UA) NEGATIVE NEGATIVE 09/03/2014 12:pm 09/03/2014 12 :37pm Urine RBC (Auto) 5+ * NEGATIVE 09/03/2014 12:23pm 09/03/2014 12:37pm Urine Ketones NEGATIVE NEGATIVE 09/03/2014 12:pm 09/03/2014 12: 37pm Urine Nitrite NEGATIVE NEGATIVE 09/03/2014 12:23pm 09/03/2014 12: 37pm Urine Bilirubin NEGATIVE NEGATIVE 09/03/2014 12:pm 09/03/2014 12: 37pm Urine Urobilinogen NORMAL MG/DL NORMAL 09/03/2014 12:23pm 09/03/2014 12 :37pm Urine Leukocyte Esterase 3+ * NEGATIVE 09/03/2014 12:pm 09/03/2014 12 :37pm Urine RBC TNTC /HPF * 09/03/2014 12:pm 09/03/2014 12:37pm Urine WBC 10-25 /HPF * 09/03/2014 12:23pm 09/03/2014 12:37pm Urine Bacteria MODERATE /HPF * 09/03/2014 12:pm 09/03/2014 12:37pm Urine Squamous Epithelial Cells 2-5 /HPF 09/03/2014 12:23pm 2014 12:37pm Urine Crystals NONE /LPF 09/03/2014 12:23pm 09/03/2014 12:37pm Urine Casts NONE /LPF 09/03/2014 12:23pm 09/03/2014 12:37pm Urine Mucus NEGATIVE /LPF 09/03/2014 12:23pm 09/03/2014 12:37pm Urine Culture Indicated YES 09/03/2014 12:23pm 09/03/2014 12:37pm Sodium Level 139 MMOL/L 135-145 10/22/2014 8:57am 10/22/2014 9:35am Potassium Level 4.0 MMOL/L 3.6-5.0 10/22/2014 8:57am 10/22/2014 9:35am Chloride Level 101 MMOL/L 98-107 10/22/2014 8:57am 10/22/2014 9:35am Carbon Dioxide Level 25 MMOL/L 21-32 10/22/2014 8:57am 10/22/2014 9: 35am Blood Urea Nitrogen 10 MG/DL 7-18 10/22/2014 8:57am 10/22/2014 9:35am Creatinine 0.77 MG/DL 0.60-1.30 10/22/2014 8:57am 10/22/2014 9:35am BUN/Creatinine Ratio 13 10/22/2014 8:57am 10/22/2014 9:35am Estimat Glomerular Filtration Rate > 60 10/22/2014 8:57am 2014 9:35am GFR INTERPRETIVE DATA UNITS FOR ESTIMATED GFR (eGFR): mL/min/1.73 M2 REFERENCE RANGE FOR ESTIMATED GFR (eGFR) eGFR NORMAL eGFR >60 MODERATELY DECREASED eGFR 30-59 SEVERLY DECREASED eGFR 15-29 KIDNEY FAILURE <15 (OR DIALYSIS) Glucose Level 138 MG/DL H 70-105 10/22/2014 8:57am 10/22/2014 9:35am Glucometer 130 MG/DL H 70-110 08/15/2014 11:33am 08/15/2014 12:00pm Calcium Level 9.1 MG/DL 8.5-10.1 10/22/2014 8:57am 10/22/2014 9:35am Magnesium Level 2.0 MG/DL 1.8-2.4 10/08/2014 8:57am 10/08/2014 9:30am Total Bilirubin 0.4 MG/DL 0.1-1.0 10/22/2014 8:57am 10/22/2014 9:35am Alkaline Phosphatase 98 U/L 40-136 10/22/2014 8:57am 10/22/2014 9:35am Aspartate Amino Transf (AST/SGOT) 22 U/L 5-34 10/22/2014 8:57am 2014 9:35am Alanine Aminotransferase (ALT/SGPT) 14 U/L 0-55 10/22/2014 8:57am 10/22 9:35am Total Protein 7.0 G/DL 6.4-8.2 10/22/2014 8:57am 10/22/2014 9:35am Albumin 3.3 G/DL 3.2-4.5 10/22/2014 8:57am 10/22/2014 9:35am Ferritin 32 NG/ML 15-150 10/22/2014 8:57am 10/23/2014 7:45am Iron Level 40 UG/DL 35-180 10/22/2014 8:57am 10/23/2014 7:45am Transferrin % Saturation 11 L % 15-50 10/22/2014 8:57am 10/23/2014 7: 45am Total Iron Binding Capacity 348 UG/DL 280-380 10/22/2014 8:57am 2014 7:45am TESTING PERFORMED BY: [facility] [id number] [place] [address] White Blood Count 5.6 10^3/uL 4.3-11.0 10/24/2014 5:50am 10/24/2014 6: 04am Red Blood Count 3.56 10^6/uL L 4.35-5.85 10/24/2014 5:50am 10/24/2014 6: 04am Hemoglobin 8.6 G/DL L 11.5-16.0 10/24/2014 5:50am 10/24/2014 6:04am Hematocrit 28 % L 35-52 10/24/2014 5:50am 10/24/2014 6:04am Mean Corpuscular Volume 79 FL L 80-99 10/24/2014 5:50am 10/24/2014 6: 04am Mean Corpuscular Hemoglobin 24 PG L 25-34 10/24/2014 5:50am 10/24/2014 6: 04am Mean Corpuscular Hemoglobin Concent 31 G/DL L 32-36 10/24/2014 5:50am 6:04am Red Cell Distribution Width 20.6 % H 10.0-14.5 10/24/2014 5:502014 6:04am Platelet Count 247 10^3/uL 130-400 10/24/2014 5:5010/24/2014 6:04am Mean Platelet Volume 10.7 FL H 7.4-10.4 10/24/2014 5:5010/24/2014 6: 04am Neutrophils (%) (Auto) 55 % 42-75 10/24/2014 5:50am 10/24/2014 6:04am Lymphocytes (%) (Auto) 33 % 12-44 10/24/2014 5:50am 10/24/2014 6:04am Monocytes (%) (Auto) 10 % 0-12 10/24/2014 5:5010/24/2014 6:04am Eosinophils (%) (Auto) 2 % 0-10 10/24/2014 5:5010/24/2014 6:04am Basophils (%) (Auto) 0 % 0-10 10/24/2014 5:5010/24/2014 6:04am Neutrophils # (Auto) 3.1 X 10^3 1.8-7.8 10/24/2014 5:50am 10/24/2014 6: 04am Lymphocytes # (Auto) 1.9 X 10^3 1.0-4.0 10/24/2014 5:5010/24/2014 6: 04am Monocytes # (Auto) 0.6 X 10^3 0.0-1.0 10/24/2014 5:5010/24/2014 6: 04am Eosinophils # (Auto) 0.1 10^3/uL 0.0-0.3 10/24/2014 5:50am 10/24/2014 6 :04am Basophils # (Auto) 0.0 10^3/uL 0.0-0.1 10/24/2014 5:5010/24/2014 6: 04am Sodium Level 135 MMOL/L 135-145 10/24/2014 5:50am 10/24/2014 6:22am Potassium Level 4.1 MMOL/L 3.6-5.0 10/24/2014 5:5010/24/2014 6:22am Chloride Level 101 MMOL/L 98-107 10/24/2014 5:50am 10/24/2014 6:22am Carbon Dioxide Level 24 MMOL/L 21-32 10/24/2014 5:50am 10/24/2014 6: 22am Blood Urea Nitrogen 13 MG/DL 7-18 10/24/2014 5:50am 10/24/2014 6:22am Creatinine 0.75 MG/DL 0.60-1.30 10/24/2014 5:50am 10/24/2014 6:22am BUN/Creatinine Ratio 17 10/24/2014 5:50am 10/24/2014 6:22am Estimat Glomerular Filtration Rate > 60 10/24/2014 5:50am 2014 6:22am GFR INTERPRETIVE DATA UNITS FOR ESTIMATED GFR (eGFR): mL/min/1.73 M2 REFERENCE RANGE FOR ESTIMATED GFR (eGFR) eGFR NORMAL eGFR >60 MODERATELY DECREASED eGFR 30-59 SEVERLY DECREASED eGFR 15-29 KIDNEY FAILURE <15 (OR DIALYSIS) Glucose Level 267 MG/DL H 70-105 10/24/2014 5:50am 10/24/2014 6:22am Glucometer 276 MG/DL H 70-110 10/25/2014 11:03am 10/25/2014 11:11am Calcium Level 8.0 MG/DL L 8.5-10.1 10/24/2014 5:50am 10/24/2014 6:22am Total Bilirubin 0.3 MG/DL 0.1-1.0 10/24/2014 5:50am 10/24/2014 6:22am Alkaline Phosphatase 79 U/L 40-136 10/24/2014 5:50am 10/24/2014 6:22am Aspartate Amino Transf (AST/SGOT) 20 U/L 5-34 10/24/2014 5:50am 2014 6:22am Alanine Aminotransferase (ALT/SGPT) 14 U/L 0-55 10/24/2014 5:50am 10/24 6:22am Total Protein 5.9 G/DL L 6.4-8.2 10/24/2014 5:50am 10/24/2014 6:22am Albumin 2.8 G/DL L 3.2-4.5 10/24/2014 5:50am 10/24/2014 6:22am Vancomycin Level Trough 13.6 UG/ML 10.0-20.0 10/24/2014 5:50am 2014 6:32am Procedures No known history of procedures. Encounters Encounter Location Date/Time Discharged Inpatient Via [facility] 10/22/14 12:29pm Discharged Recurring Via [facility] 09/17/14 12:30pm Discharged Recurring Via [facility] 07/26/14 9:57am
[2016-05-03 11:18] LABS: BASOPHILS % (AUTO) 0 % (0-10); EOSINOPHILS # (AUTO) 0.1 10^3/uL (0.0-0.3); EOSINOPHILS % (AUTO) 1 % (0-10); LYMPHOCYTES # (AUTO) 2.8 X 10^3 (1.0-4.0); LYMPHOCYTES % (AUTO) 27 % (12-44); MEAN CORPUSCULAR HEMOGLOBIN 28 PG (25-34); MEAN CORPUSCULAR HGB CONC 32 G/DL (32-36); MEAN CORPUSCULAR VOLUME 88 FL (80-99); MEAN PLATELET VOLUME 10.2 FL (7.4-10.4); MONOCYTES # (AUTO) 0.7 X 10^3 (0.0-1.0); MONOCYTES % (AUTO) 7 % (0-12); NEUTROPHILS # (AUTO) 6.5 X 10^3 (1.8-7.8); NEUTROPHILS % (AUTO) 64 % (42-75); PLATELET COUNT 244 10^3/uL (130-400); RED CELL DISTRIBUTION WIDTH 16.6 % (10.0-14.5); WHITE BLOOD COUNT 10.1 10^3/uL (4.3-11.0)
[2016-05-03 11:42] LABS: ALBUMIN 3.4 G/DL (3.2-4.5); BILIRUBIN,TOTAL 0.4 MG/DL (0.1-1.0); CALCIUM 8.4 MG/DL (8.5-10.1); CREATININE SERUM 1.13 MG/DL (0.60-1.30); POTASSIUM 4.3 MMOL/L (3.6-5.0); TOTAL PROTEIN 6.4 G/DL (6.4-8.2)
[2016-05-25 10:54] LABS: BASOPHILS % (AUTO) 0 % (0-10); EOSINOPHILS # (AUTO) 0.1 10^3/uL (0.0-0.3); EOSINOPHILS % (AUTO) 1 % (0-10); LYMPHOCYTES # (AUTO) 2.1 X 10^3 (1.0-4.0); LYMPHOCYTES % (AUTO) 23 % (12-44); MEAN CORPUSCULAR HEMOGLOBIN 27 PG (25-34); MEAN CORPUSCULAR HGB CONC 32 G/DL (32-36); MEAN CORPUSCULAR VOLUME 86 FL (80-99); MONOCYTES # (AUTO) 0.8 X 10^3 (0.0-1.0); MONOCYTES % (AUTO) 8 % (0-12); NEUTROPHILS # (AUTO) 6.3 X 10^3 (1.8-7.8); NEUTROPHILS % (AUTO) 68 % (42-75); PLATELET COUNT 237 10^3/uL (130-400); RED CELL DISTRIBUTION WIDTH 17.4 % (10.0-14.5); WHITE BLOOD COUNT 9.2 10^3/uL (4.3-11.0)
[2016-05-25 11:23] LABS: ALBUMIN 3.6 G/DL (3.2-4.5); BILIRUBIN,TOTAL 0.3 MG/DL (0.1-1.0); CALCIUM 8.4 MG/DL (8.5-10.1); CREATININE SERUM 1.69 MG/DL (0.60-1.30); POTASSIUM 4.1 MMOL/L (3.6-5.0); TOTAL PROTEIN 6.7 G/DL (6.4-8.2)
[2016-06-08 09:30] LABS: BASOPHILS % (AUTO) 0 % (0-10); EOSINOPHILS # (AUTO) 0.1 10^3/uL (0.0-0.3); EOSINOPHILS % (AUTO) 2 % (0-10); LYMPHOCYTES # (AUTO) 2.2 X 10^3 (1.0-4.0); LYMPHOCYTES % (AUTO) 27 % (12-44); MEAN CORPUSCULAR HEMOGLOBIN 27 PG (25-34); MEAN CORPUSCULAR HGB CONC 32 G/DL (32-36); MEAN CORPUSCULAR VOLUME 86 FL (80-99); MEAN PLATELET VOLUME 9.7 FL (7.4-10.4); MONOCYTES # (AUTO) 0.7 X 10^3 (0.0-1.0); MONOCYTES % (AUTO) 8 % (0-12); NEUTROPHILS # (AUTO) 5.1 X 10^3 (1.8-7.8); NEUTROPHILS % (AUTO) 63 % (42-75); PLATELET COUNT 202 10^3/uL (130-400); RED BLOOD COUNT 3.77 10^6/uL (4.35-5.85); RED CELL DISTRIBUTION WIDTH 18.1 % (10.0-14.5); WHITE BLOOD COUNT 8.1 10^3/uL (4.3-11.0)
[2016-06-08 09:54] LABS: ALBUMIN 3.4 G/DL (3.2-4.5); BILIRUBIN,TOTAL 0.5 MG/DL (0.1-1.0); CALCIUM 7.9 MG/DL (8.5-10.1); CREATININE SERUM 1.17 MG/DL (0.60-1.30); POTASSIUM 4.1 MMOL/L (3.6-5.0); TOTAL PROTEIN 6.1 G/DL (6.4-8.2)
[2016-06-22 09:27] LABS: BASOPHILS % (AUTO) 0 % (0-10); EOSINOPHILS # (AUTO) 0.2 10^3/uL (0.0-0.3); EOSINOPHILS % (AUTO) 1 % (0-10); LYMPHOCYTES # (AUTO) 4.3 X 10^3 (1.0-4.0); LYMPHOCYTES % (AUTO) 33 % (12-44); MEAN CORPUSCULAR HEMOGLOBIN 27 PG (25-34); MEAN CORPUSCULAR HGB CONC 32 G/DL (32-36); MEAN CORPUSCULAR VOLUME 85 FL (80-99); MEAN PLATELET VOLUME 9.6 FL (7.4-10.4); MONOCYTES # (AUTO) 1.1 X 10^3 (0.0-1.0); MONOCYTES % (AUTO) 9 % (0-12); NEUTROPHILS # (AUTO) 7.5 X 10^3 (1.8-7.8); NEUTROPHILS % (AUTO) 57 % (42-75); PLATELET COUNT 260 10^3/uL (130-400); RED BLOOD COUNT 4.22 10^6/uL (4.35-5.85); RED CELL DISTRIBUTION WIDTH 19.2 % (10.0-14.5); WHITE BLOOD COUNT 13.1 10^3/uL (4.3-11.0)
[2016-06-22 09:52] LABS: ALBUMIN 3.9 G/DL (3.2-4.5); BILIRUBIN,TOTAL 0.6 MG/DL (0.1-1.0); CALCIUM 8.9 MG/DL (8.5-10.1); CREATININE SERUM 1.81 MG/DL (0.60-1.30); POTASSIUM 4.1 MMOL/L (3.6-5.0)
[2016-06-22 13:17] LABS: KETONES,URINE 1+ (NEGATIVE); LEUKOCYTE ESTERASE ,URINE 1+ (NEGATIVE); NITRITE,URINE NEGATIVE (NEGATIVE); PH,URINE 5 (5-9); PROTEIN,URINE 1+ (NEGATIVE); UROBILINOGEN,URINE 1 MG/DL (NORMAL)
[2016-06-22 13:40] LABS: BILIRUBIN,URINE 2+ (NEGATIVE)
[2016-06-22 13:41] LABS: HYALINE CASTS, URINE >50 /LPF
[2016-06-23 08:57] LABS: CALCIUM 8.1 MG/DL (8.5-10.1); CREATININE SERUM 1.95 MG/DL (0.60-1.30); POTASSIUM 4.7 MMOL/L (3.6-5.0)
[~2016-07-27] VITALS: Ht 160 cm; Wt 119.7 kg
[~2016-07-27 09:42] MED LIST changes: +BEVACIZUMAB IV SCH; +D5W IV SCH; +DEXAMETHASONE IV SCH; +FAMOTIDINE 20MG/2ML IV (CANCER CTR) IV SCH; +FENT1PAT60 TD; +LEUCOVORIN CALCIUM IV SCH; +LINE600T5 PO; +NS (IVPB) CANCER CENTER 250 ML IV SCH; +NS IV 1000 ML (CANCER CTR) 1,000 ML ONE; +NS IV SCH; +ONDANSETRON IV SCH; +ONDANSETRON MDV (CANCER CENTER 8 MG in NS (IVPB) CANCER CENTER 50 ML IV ONE; +diphenhydrAMINE 25 MG TAB (BENADRYL) CANCER CENTER PO SCH; +fentaNYL INJ 100 MCG/2 ML (CANCER CENTER) INJ ONE
[2016-07-27 10:16] LABS: BASOPHILS % (AUTO) 0 % (0-10); EOSINOPHILS # (AUTO) 0.1 10^3/uL (0.0-0.3); EOSINOPHILS % (AUTO) 1 % (0-10); LYMPHOCYTES # (AUTO) 1.7 X 10^3 (1.0-4.0); LYMPHOCYTES % (AUTO) 20 % (12-44); MEAN CORPUSCULAR HEMOGLOBIN 26 PG (25-34); MEAN CORPUSCULAR HGB CONC 31 G/DL (32-36); MEAN CORPUSCULAR VOLUME 83 FL (80-99); MEAN PLATELET VOLUME 9.3 FL (7.4-10.4); MONOCYTES # (AUTO) 0.6 X 10^3 (0.0-1.0); MONOCYTES % (AUTO) 7 % (0-12); NEUTROPHILS # (AUTO) 6.1 X 10^3 (1.8-7.8); NEUTROPHILS % (AUTO) 72 % (42-75); PLATELET COUNT 204 10^3/uL (130-400); RED CELL DISTRIBUTION WIDTH 18.7 % (10.0-14.5); WHITE BLOOD COUNT 8.4 10^3/uL (4.3-11.0)
[2016-07-27 10:41] LABS: ALBUMIN 3.3 G/DL (3.2-4.5); BILIRUBIN,TOTAL 0.5 MG/DL (0.1-1.0); CALCIUM 8.7 MG/DL (8.5-10.1); CREATININE SERUM 1.02 MG/DL (0.60-1.30); POTASSIUM 4.7 MMOL/L (3.6-5.0); TOTAL PROTEIN 6.3 G/DL (6.4-8.2)
== END 2016-08-01 | disposition home or self-care (01) ==
LOC: ONC 09:42
PROVIDERS: ATTEND Internal Medicine Hematology & Oncology
DX: Z51.11 Encounter for antineoplastic chemotherapy (principal); C19 Malignant neoplasm of rectosigmoid junction; D50.9 Iron deficiency anemia, unspecified; E11.9 Type 2 diabetes mellitus without complications; I25.10 Atherosclerotic heart disease of native coronary artery without angina pectoris; I10 Essential (primary) hypertension; E78.5 Hyperlipidemia, unspecified; R82.99 Other abnormal findings in urine; Z79.899 Other long term (current) drug therapy
CPT/HCPCS: 36415; 36591; 80048; 80053; 81000; 85025; 87088; 87186; 96360; 96361; 96365; 96367; 96374; 96375; 96409; 96411; 96521; 99213